=== PATIENT | female | born 1955 | race Caucasian/White ===

== ENCOUNTER → 2017-09-19 09:50 | Outpatient (CLI) | payer OTHER, SELFPAY ==
[2017-09-19 11:52] LABS: Free T4, Direct Thyroxine 1.56 ng/dL (0.78-2.19)
[2017-09-19 12:06] LABS: Thyroid Stimulating Hormone 0.09 uIU/mL (0.47-4.68)
== END ==
PROVIDERS: PCP Internal Medicine; Visit Provider Internal Medicine
DX: E03.9 Hypothyroidism, unspecified (principal)
CPT/HCPCS: 36415; 84439; 84443; 84481

== ENCOUNTER → 2018-03-20 09:45 | Outpatient (CLI) | payer OTHER, SELFPAY ==
[2018-03-20 11:40] LABS: Thyroid Stimulating Hormone 3.03 uIU/mL (0.47-4.68)
== END ==
PROVIDERS: PCP Internal Medicine; Visit Provider Internal Medicine
DX: E03.9 Hypothyroidism, unspecified (principal)
CPT/HCPCS: 36415; 84443

== ENCOUNTER 2019-04-26 16:28 | Emergency (ER) | payer OTHER, SELFPAY ==
--- NOTE | 2019-04-26 16:40 | DI.RAD.S_ITS ---
PROCEDURE: XR CHEST 1V INDICATIONS: multiple syncopal episodes TECHNIQUE: One view of the chest was acquired. COMPARISON: [facility], , CHEST 2 VIEW, 02/27/2013, 10:13. FINDINGS: Surgical changes and devices: None. Lungs and pleura: Lungs are clear. No pleural effusions or pneumothorax. Mediastinum: Mediastinal contours appear normal. Heart size is normal. There is a moderate-sized hiatal hernia. Bones and chest wall: No suspicious bony lesions. Overlying soft tissues appear unremarkable. IMPRESSION: 1. No acute cardiopulmonary disease. 2. Moderate size hiatal hernia. Dictated by: Marilyn Simpson M.D. on 04/26/2019 at 17:48 Approved by: Marilyn Simpson M.D. on 04/26/2019 at 17:49
--- NOTE | 2019-04-26 16:40 | DI.CT.S_ITS ---
PROCEDURE: CT HEAD/BRAIN WO CON INDICATIONS: head injury due to syncopal episode or new seizure TECHNIQUE: Noncontrast 4.5 mm thick angled axial sections acquired from the foramen magnum to the vertex, with coronal and sagittal reformats. For radiation dose reduction, the following was used: automated exposure control, adjustment of mA and/or kV according to patient size. COMPARISON: None. FINDINGS: Image quality: Excellent. CSF spaces: Basal cisterns are patent. No extra-axial fluid collections. The ventricles are symmetric in size and shape. Brain: No intracranial bleeds or masses. There is mild cerebral volume loss for age, with resultant ventricular and sulcal prominence. There are moderate periventricular and deep white matter chronic small vessel ischemic changes. There is intracranial internal carotid artery atherosclerosis. Skull and face: Calvarium and visualized facial bones appear intact, without suspicious lesions. Sinuses: Visualized sinuses and mastoids are clear. IMPRESSION: 1. No acute intracranial abnormalities. No intracranial bleed or skull fracture. 2. Cerebral volume loss and chronic microvascular ischemic changes. Dictated by: Marilyn Simpson M.D. on 04/26/2019 at 17:25 Approved by: Marilyn Simpson M.D. on 04/26/2019 at 17:26
--- NOTE | 2019-04-26 16:41 | ED_ITS ---
HPI - Syncope General Chief Complaint: Syncope Stated Complaint: Passing Out Time Seen by Provider: 04/26/19 16:30 Source: patient and family Mode of arrival: Ambulatory Limitations: no limitations History of Present Illness HPI narrative: 63-year-old female former smoker with history of hypertension presents with her in the chief complaint of at least 3 syncopal episodes in the past 2 days. She states they seem to happen when she stands up too quickly and reports that she was recently started on atenolol for elevated blood pressure. She has had some nausea vomiting and diarrhea but isn't a great his jean marie and is unclear how much has happened. She denies any dark and tarry stool or vaginal bleeding. She denies urinary complaints such as dysuria, frequency or urgency. She denies any chest pain or shortness of breath and has no history of blood clot. She did hit her head on the syncopal episode earlier today. She does state that she thinks she can feel herself becoming lightheaded prior to these episodes. MD complaint: loss of consciousness and felt faint Onset (ago): day(s) Prodromal symptoms: lightheaded Witnessed: yes - by bystander Context: getting out of bed Injuries sustained associated with event: head Current symptoms: none Treatments prior to arrival: none Related Data Previous Rx's Medication Instructions Recorded atenolol 25 mg PO QDAY #90 tab 06/05/17 fluticasone propionate 0 INTRANASAL QDAY #16 gm 06/18/17 albuterol sulfate 90 mcg/actuation 2 puff INHALATION SEE INSTRUCTIONS 09/17/17 aerosol inhaler #1 inh venlafaxine 75 mg tablet 75 mg PO BID #180 tab 09/17/17 levothyroxine 88 mcg tablet 88 mcg PO DAILY #90 tab 10/15/17 potassium chloride 20 meq PO DAILY #7 tab 04/26/19 Allergies Allergy/AdvReac Type Severity Reaction Status Date / Time Sulfa (Sulfonamide Allergy Mild Unverified 09/17/17 10:32 Antibiotics) [SULFA (SULFONAMIDE ANTIBIOTICS)] Review of Systems Constitutional Constitutional: Denies chills, Denies fatigue, Denies fever(s), Denies frequent falls, Denies lethargy and Denies weakness Eyes Eyes: Denies change in vision, Denies eye discharge, Denies irritation and Denies loss of vision ENT Ears, Nose, Mouth, and Throat: Denies change in voice, Denies dizziness, Denies neck pain, Denies sore throat and Denies throat swelling Cardiovascular Cardiovascular: Denies chest pain, Reports syncope, Denies irregular heart rhythm, Denies lightheadedness, Denies palpitations, Denies dyspnea, Denies dyspnea on exertion and Denies orthopnea Respiratory Respiratory: Denies cough, Denies dyspnea, Denies dyspnea on exertion and Denies wheezing Gastrointestinal Gastrointestinal: Denies abdominal pain, Denies change in bowel habits, Reports diarrhea, Reports nausea and Reports vomiting Genitourinary Genitourinary: Denies hematuria, Denies flank pain, Denies urinary incontinence and Denies urinary urgency Musculoskeletal Musculoskeletal: Denies back pain, Denies muscle weakness, Denies neck pain, Denies numbness and Denies tingling Integumentary/Breasts Skin/Breast: Denies pruritus, Denies erythema, Denies rash and Denies wounds Neurologic Neurologic: Denies behavioral changes, Denies confusion, Denies dizziness, Reports syncope, Denies frequent falls, Denies loss of vision, Denies numbness, Denies tingling and Denies weakness Psychiatric Psychiatric: Denies anxiety, Denies behavioral changes, Denies confusion, Denies depression, Denies homicidal ideation and Denies suicidal ideation Endocrine Endocrine: Denies fatigue, Denies flushing and Denies palpitations Hematologic/Lymphatic Hematologic/Lymphatic: Denies easy bruising Allergic/Immunologic Allergic/Immunologic: Denies urticaria, Denies throat swelling and Denies wheezing Patient History Medical History (Updated 04/26/19 @ 20:33 by Corky Bryan DO) Anxiety (Chronic) Bronchiectasis (Chronic ~1993) Depression (Chronic) GERD (gastroesophageal reflux disease) (Chronic) Hypothyroidism (Chronic) Surgical History (Updated 09/16/17 @ 20:39 by Yoselin Ruth) Anesthesia (Resolved) History of bilateral salpingo-oophorectomy (BSO) (~06/2012) Family History (Updated 09/16/17 @ 20:41 by Yoselin Ruth) Father Age: 90 Stroke CAD (coronary artery disease) Mother Age: 87 Hypertension Grandfather No problems noted. Grandmother Cancer Grandfather No problems noted. Social History Smoking Status: Current every day smoker Smoking Status: Former smoker Exam Narrative Exam Narrative: GENERAL: [63] year old patient appears stated age. Well- nourished, well-developed patient, in mild distress. HEAD: Atraumatic. Normocephalic. EYES: Pupils equal round and reactive. Extraocular motions intact. No scleral icterus. No injection or drainage. ENT: Nose without bleeding, purulent drainage. Throat without erythema, tonsillar hypertrophy or exudate. Airway patent. NECK: Trachea midline. Non tender CARDIOVASCULAR: Regular rate and rhythm without murmurs, gallops, or rubs. RESPIRATORY: Clear to auscultation. Breath sounds equal bilaterally. No wheezes, rales, or rhonchi. GASTROINTESTINAL: Abdomen soft, non-tender, nondistended. RECTAL: Exam performed with patient's permission and female nursing concrete pipe plant supervisor at the bedside. Heme negative EXTREMITIES: No edema or joint tenderness. BACK: Nontender without deformity or crepitance. No flank tenderness. NEURO: AOx3. SKIN: No rash or erythema of visible areas Initial Vital Signs Initial Vital Signs: Vital Signs Temperature 98.3 F 04/26/19 16:45 Pulse Rate 78 04/26/19 16:45 Respiratory Rate 22 04/26/19 16:45 Blood Pressure 145/70 H 04/26/19 16:45 Pulse Oximetry 98 04/26/19 16:45 Course Orders Ordered: Discontinued Medications Sodium Chloride (Normal Saline 0.9%) 1,000 mls @ 150 mls/hr IV CONT YURIDIA Last Admin: 04/26/19 17:38 Dose: 150 mls/hr Documented by: ÁLVARO Vital Signs Vital signs: Vital Signs - 8 hr 04/26/19 16:45 04/26/19 18:44 04/26/19 19:30 Temperature 98.3 F Pulse Rate 78 63 Pulse Rate [Orthostatic Lying] 61 Pulse Rate [Orthostatic Sitting] 69 Pulse Rate [Orthostatic Standing] 71 Respiratory Rate 22 18 Blood Pressure 145/70 H Blood Pressure [Orthostatic Lying] 135/75 Blood Pressure [Orthostatic Sitting] 121/62 Blood Pressure [Orthostatic Standing] 84/54 L Blood Pressure [Right Arm] 124/64 Pulse Oximetry 98 98 MDM - Syncope Lab Data Result diagrams: 04/26/19 16:50 04/26/19 16:50 Labs: Lab Results 04/26/19 04/26/19 04/26/19 Range/Units 16:50 16:50 16:50 WBC 9.5 (4.5-11.0) X10^3/uL RBC 4.05 (4.0-5.2) X10^6/uL Hgb 9.0 L (12.0-16.0) g/dL Hct 29.1 L (36-46) % MCV 72.0 L (80-100) fL MCH 22.3 L (26-34) PG MCHC 31.0 (30-36) % RDW 18.4 H (11.6-14.8) % Plt Count 482 H (150-400) X10^3/uL Neut % (Auto) 66.3 (50-75) % Lymph % (Auto) 23.6 L (25-40) % [place] % (Auto) 8.2 (3-14) % Eos % (Auto) 1.2 L (2-4) % Baso % (Auto) 0.7 (0-2) % Neut # (Auto) 6300 (1866-8237) /uL Lymph # (Auto) 2200 (0207-4754) /uL [place] # (Auto) 800 (0-900) /uL Eos # (Auto) 100 (0-450) /uL Baso # (Auto) 100 (0-100) /uL PT 11.1 (10.1-12.7) SECONDS INR 1.0 (0.9-1.3) D-Dimer 1907 H (<230) ng/mL Sodium (137-145) mmol/L Potassium (3.4-5.1) mmol/L Chloride (98-107) mmol/L Carbon Dioxide (22-32) mmol/L BUN (7-17) mg/dL Creatinine (0.52-1.04) mg/dL Estimated GFR (>60) mL/min BUN/Creatinine Ratio (6-22) Glucose (80-110) mg/dL Calcium (8.4-10.2) mg/dL Magnesium 2.0 (1.6-2.3) mg/dL Total Bilirubin (0.2-1.3) mg/dL AST (14-36) IU/L ALT (<35) IU/L Alkaline Phosphatase (38-126) U/L Total Creatine Kinase (30-135) U/L CK-MB (CK-2) CK-MB (CK-2) Rel Index Troponin I (0.01-0.034) ng/mL NT-Pro-B Natriuret Pep 117 (<125) pg/mL Total Protein (6.3-8.2) g/dL Albumin (3.5-5.0) g/dL Globulin (1.7-4.1) g/dL Albumin/Globulin Ratio (1.0-2.8) Prolactin 33.1 H (3.0-18.6) ng/mL 04/26/19 Range/Units 16:50 WBC (4.5-11.0) X10^3/uL RBC (4.0-5.2) X10^6/uL Hgb (12.0-16.0) g/dL Hct (36-46) % MCV (80-100) fL MCH (26-34) PG MCHC (30-36) % RDW (11.6-14.8) % Plt Count (150-400) X10^3/uL Neut % (Auto) (50-75) % Lymph % (Auto) (25-40) % [place] % (Auto) (3-14) % Eos % (Auto) (2-4) % Baso % (Auto) (0-2) % Neut # (Auto) (6016-8049) /uL Lymph # (Auto) (4077-5751) /uL [place] # (Auto) (0-900) /uL Eos # (Auto) (0-450) /uL Baso # (Auto) (0-100) /uL PT (10.1-12.7) SECONDS INR (0.9-1.3) D-Dimer (<230) ng/mL Sodium 130 L (137-145) mmol/L Potassium 3.1 L (3.4-5.1) mmol/L Chloride 91 L (98-107) mmol/L Carbon Dioxide 29 (22-32) mmol/L BUN 12 (7-17) mg/dL Creatinine 0.60 (0.52-1.04) mg/dL Estimated GFR > 60.0 (>60) mL/min BUN/Creatinine Ratio 20.0 (6-22) Glucose 86 (80-110) mg/dL Calcium 9.2 (8.4-10.2) mg/dL Magnesium (1.6-2.3) mg/dL Total Bilirubin 0.2 (0.2-1.3) mg/dL AST 30 (14-36) IU/L ALT 17 (<35) IU/L Alkaline Phosphatase 50 (38-126) U/L Total Creatine Kinase 61 (30-135) U/L CK-MB (CK-2) TNP CK-MB (CK-2) Rel Index TNP Troponin I < 0.012 (0.01-0.034) ng/mL NT-Pro-B Natriuret Pep (<125) pg/mL Total Protein 7.6 (6.3-8.2) g/dL Albumin 4.4 (3.5-5.0) g/dL Globulin 3.2 (1.7-4.1) g/dL Albumin/Globulin Ratio 1.4 (1.0-2.8) Prolactin (3.0-18.6) ng/mL Imaging Data CT scan - chest: Radiologist's Impression: [address] [address] [address] Scan Report Signed Patient: Norma Lowe [facility]#: [id number] : 6Acct:[id number] Age/Sex: 63 / FDate of Service: 04/26/19 Loc: ED Accession Number: [id number] Procedure: CT angio chest PE protocol Ordering Provider: Corky Bryan D.O. PROCEDURE: CT ANGIO CHEST PE PROTOCOL INDICATIONS: syncope, SOB, critical DDimer TECHNIQUE: After the administration of intravenous contrast, 2 mm thick sections acquired from the pulmonary apices to the posterior costophrenic angles. 3-dimensional maximum intensity projection (MIP) coronal and sagittal reformats were then acquired through the thorax. For radiation dose reduction, the following was used: automated exposure contro l, adjustment of mA and/or kV according to patient size. COMPARISON: [facility], , CHEST 2 VIEW, 07/31/2006, 9:36. FINDINGS: Image quality: Excellent. Pulmonary arteries: Pulmonary arteries are normal in size, and demonstrate no intraluminal filling defects to suggest central pulmonary embolism. Lungs and pleura: Mild emphysema. Bibasilar opacities are most likely scars/atelectasis. There is a 5 mm subpleural nodule in the left lower lobe (series 6 image 213). A small calcified neuromas noted in the right middle lobe. No pleural effusions or pneumothorax. Central and peripheral airways are patent. Mediastinum: Heart size is normal, without pericardial effusion. No mediastinal or hilar adenopathy. Thoracic aorta is normal in caliber and enhancement. Esophagus is normal in caliber. Moderate to large hiatal hernia. Bones and chest wall: No suspicious bony lesions. Ribs and thoracic spine appear intact throughout. Thyroid gland is normal. No axillary or supraclavicular adenopathy. Abdomen: Visualized upper abdominal solid organs appear normal in the early arterial phase of enhancement. A small indeterminate cortical nodule in the superior pole the right kidney is most likely a cyst. IMPRESSION: 1. No findings to suggest pulmonary embolism. 2. Mild emphysema. 3. A 5 mm subpleural nodule in the left lower lobe. Please see enclosed followup recommendation. 4. Bibasilar scars/atelectasis. Fleischner Society criteria for SOLID lung nodule followup. Nodule size (mm)Low-risk patientHigh-risk patient?4No follow-up neededFollow-up at 12 mo; if no change, no further follow-up>[id number] CT at 12 mo; if no change, no further follow-up needed.Initial follow-up CT at 6-12 mo, then 18-24 mo if no change. >6-8Initial follow-up CT at 6-12 mo, then 18-24 mo if no change. Initial follow- up CT at 3-6 mo, then 9-12 mo and 24 mo if no change. >8Follow-up CT at 3, 9, 24 mo. Or PET and/or biopsy.Same as for low-risk pts. Dictated by: Marilyn Simpson M.D. on 04/26/2019 at 18:29 Approved by: Marilyn Simpson M.D. on 04/26/2019 at 18:38 ECG Data Attestation: I personally reviewed and interpreted this ECG as follows: Interpretation: EKG is normal sinus rhythm rate [ 71] and free of any signs of ischemia or ectopy. No ST segmental elevation or depression. No T wave inversions Discharge Plan Departure Patient Disposition: Home Clinical Impression: Orthostatic hypotension, Acute hypokalemia Anemia Qualifiers: Anemia type: iron deficiency Iron deficiency anemia type: unspecified iron deficiency Qualified Code(s): D50.9 - Iron deficiency anemia, unspecified Discharge Date/Time: 04/26/19 20:39 Instructions: DI for Syncope in Adults (Fainting) Activity Restrictions/Additional Instructions: *You have been diagnosed with [syncope, likely secondary to orthostatic hypotension] *What to do: *Take medications as directed *Follow up with your primary care provider on Saturday as planned. It would seem reasonable to call them tomorrow to let them know of your visit today so they can obtain the records and be prepared for your visit. *Return to ER if you should have any new, worsening or concerning symptoms Prescriptions: New potassium chloride 20 mEq tablet extended release 20 meq PO DAILY Qty: 7 RF: 0 No Action atenolol 25 MG tablet 25 mg PO QDAY Qty: 90 RF: 3 fluticasone propionate 16 GM spray,suspension 0 Intranasal QDAY Qty: 16 RF: 3 albuterol sulfate [Proventil HFA] 90 mcg/actuation HFA aerosol inhaler 2 puff INHALATION SEE INSTRUCTIONS Qty: 1 RF: 2 levothyroxine 88 mcg tablet 88 mcg PO DAILY Qty: 90 RF: 3 venlafaxine 75 mg tablet 75 mg PO BID Qty: 180 RF: 3 Referrals: Traci Barney ARNP [Primary Care Provider] -
[2019-04-26 16:45] VITALS: BP 145/70; PULSE 78; RESP 22; TEMP 36.8; O2SAT 98; BMI 21.9
[2019-04-26 16:59] LABS: Add Manual Diff / Slide Review NO; Basophils Absolute Auto 100 /uL (0-100); Basophils Percent Auto 0.7 % (0-2); Eosinophils Absolute Auto 100 /uL (0-450); Eosinophils Percent Auto 1.2 % (2-4); Hematocrit 29.1 % (36-46); Lymphocytes Absolute Auto 2200 /uL (1100-4500); Lymphocytes Percent Auto 23.6 % (25-40); Mean Corpuscular Hemoglobin 22.3 PG (26-34); Monocytes Absolute Auto 800 /uL (0-900); Monocytes Percent Auto 8.2 % (3-14); Neutrophils Absolute Auto 6300 /uL (1500-7000); Neutrophils Percent Auto 66.3 % (50-75); Platelet Count 482 X10^3/uL (150-400); Red Blood Cell Count 4.05 X10^6/uL (4.0-5.2); Red Cell Distribution Width 18.4 % (11.6-14.8); White Blood Cell Count 9.5 X10^3/uL (4.5-11.0)
[2019-04-26 17:02] LABS: Prothrombin Time 11.1 SECONDS (10.1-12.7)
[2019-04-26 17:05] LABS: Alanine Aminotransferase 17 IU/L (<35); Albumin 4.4 g/dL (3.5-5.0); Albumin Globulin Ratio 1.4 (1.0-2.8); Alkaline Phosphatase 50 U/L (38-126); Aspartate Aminotransferase 30 IU/L (14-36); Bilirubin Total 0.2 mg/dL (0.2-1.3); Blood Urea Nitrogen 12 mg/dL (7-17); Calcium 9.2 mg/dL (8.4-10.2); Carbon Dioxide 29 mmol/L (22-32); Chloride 91 mmol/L (98-107); Creatine Kinase 61 U/L (30-135); Estimated Glomerular Filt Rate > 60.0 mL/min (>60); Globulin 3.2 g/dL (1.7-4.1); Glucose 86 mg/dL (80-110); HEMOLYSIS < 15 (0-50); Potassium 3.1 mmol/L (3.4-5.1); Sodium 130 mmol/L (137-145); Total Protein 7.6 g/dL (6.3-8.2)
[2019-04-26 17:11] LABS: D Dimer 1907 ng/mL (<230)
[2019-04-26 17:17] LABS: Troponin I < 0.012 ng/mL (0.01-0.034)
[2019-04-26 17:22] LABS: NT-proBNP (BNP-Adult 18+) 117 pg/mL (<125)
--- NOTE | 2019-04-26 17:28 | DI.CT.S_ITS ---
PROCEDURE: CT ANGIO CHEST PE PROTOCOL INDICATIONS: syncope, SOB, critical DDimer TECHNIQUE: After the administration of intravenous contrast, 2 mm thick sections acquired from the pulmonary apices to the posterior costophrenic angles. 3-dimensional maximum intensity projection (MIP) coronal and sagittal reformats were then acquired through the thorax. For radiation dose reduction, the following was used: automated exposure control, adjustment of mA and/or kV according to patient size. COMPARISON: [facility], , CHEST 2 VIEW, 07/31/2006, 9:36. FINDINGS: Image quality: Excellent. Pulmonary arteries: Pulmonary arteries are normal in size, and demonstrate no intraluminal filling defects to suggest central pulmonary embolism. Lungs and pleura: Mild emphysema. Bibasilar opacities are most likely scars/atelectasis. There is a 5 mm subpleural nodule in the left lower lobe (series 6 image 213). A small calcified neuromas noted in the right middle lobe. No pleural effusions or pneumothorax. Central and peripheral airways are patent. Mediastinum: Heart size is normal, without pericardial effusion. No mediastinal or hilar adenopathy. Thoracic aorta is normal in caliber and enhancement. Esophagus is normal in caliber. Moderate to large hiatal hernia. Bones and chest wall: No suspicious bony lesions. Ribs and thoracic spine appear intact throughout. Thyroid gland is normal. No axillary or supraclavicular adenopathy. Abdomen: Visualized upper abdominal solid organs appear normal in the early arterial phase of enhancement. A small indeterminate cortical nodule in the superior pole the right kidney is most likely a cyst. IMPRESSION: 1. No findings to suggest pulmonary embolism. 2. Mild emphysema. 3. A 5 mm subpleural nodule in the left lower lobe. Please see enclosed followup recommendation. 4. Bibasilar scars/atelectasis. Fleischner Society criteria for SOLID lung nodule followup. Nodule size (mm)Low-risk patientHigh-risk patient?4No follow-up neededFollow-up at 12 mo; if no change, no further follow-up>[id number] CT at 12 mo; if no change, no further follow-up needed.Initial follow-up CT at 6-12 mo, then 18-24 mo if no change. >6-8Initial follow-up CT at 6-12 mo, then 18-24 mo if no change. Initial follow-up CT at 3-6 mo, then 9-12 mo and 24 mo if no change. >8Follow-up CT at 3, 9, 24 mo. Or PET and/or biopsy.Same as for low-risk pts. Dictated by: Marilyn Simpson M.D. on 04/26/2019 at 18:29 Approved by: Marilyn Simpson M.D. on 04/26/2019 at 18:38
[2019-04-26] MEDS: SODIUM CHLORIDE 0.9% 1,000 ML 150 ML IV (17:38)
[2019-04-26 17:47] LABS: Prolactin 33.1 ng/mL (3.0-18.6)
[2019-04-26 18:44] VITALS: BP 124/64; PULSE 63; RESP 18; O2SAT 98
[2019-04-26 19:30] VITALS: BP 121/62; BP 135/75; BP 84/54; PULSE 61; PULSE 69; PULSE 71
[2019-04-26 20:37] VITALS: BP 152/78; BP 164/83; PULSE 119; PULSE 83; PULSE 84
--- NOTE | 2019-05-20 12:13 | PC.NURSE ---
late entry IV stop time 2037. Fluids started at 1738 at 150 per hour. Pt received 450 mL total of N.S.
== END 2019-04-26 20:39 | disposition home or self-care (01) ==
PROVIDERS: Emergency Provider Emergency Medicine; PCP Internal Medicine
DX: I95.1 Orthostatic hypotension (principal); E87.6 Hypokalemia; D50.9 Iron deficiency anemia, unspecified; R06.02 Shortness of breath; S09.90XA Unspecified injury of head, initial encounter
CPT/HCPCS: 36415; 70450; 71045; 71275; 80053; 82550; 83735; 83880; 84146; 84484; 85025; 85379; 85610; 93005; 96360; 96361; 99284; 99285; Q9967

== ENCOUNTER → 2019-05-20 08:26 | Outpatient (CLI) | payer OTHER, SELFPAY ==
--- NOTE | 2019-06-19 15:23 | PM.CARDMON.1 ---
[employer] Report Referral & Results Date Patient Seen: 05/20/19 Requesting provider: Traci Barney Indication: Syncope Duration of monitoring (days): 14 Diary information: There was 1 patient triggered event associated with sinus rhythm and no patient diary entries Data: Minimum heart rate identified was 56 beats per minute at 20:03 on 06/01/2019 Maximum sinus heart rate was 166 beats per minute at 02:01 on 05/30/2019 Maximum overall heart rate was 182 beats per minute at 22:02 on 05/23/2019 during a 4 beat run of SVT Less than 1% of identified beats or either ventricular supraventricular ectopic in origin There was only the 1 run of SVT Patient did have 12.5 seconds of ventricular bigeminy Impression: Minor dysrhythmias as above. No etiology for syncope identified on this study.
== END ==
PROVIDERS: PCP Internal Medicine; Referring Provider Internal Medicine; Visit Provider Internal Medicine
DX: R55 Syncope and collapse (principal)
CPT/HCPCS: 0296T; 0298T

== ENCOUNTER 2019-05-29 19:19 | Emergency (ER) | payer OTHER, SELFPAY ==
[2019-05-29 19:25] VITALS: BP 135/66; PULSE 118; RESP 32; TEMP 39.1; O2SAT 97
[2019-05-29 19:35] VITALS: TEMP 39.2
[2019-05-29] MEDS: ACETAMINOPHEN 325 MG TABLET 975 MG PO (19:35)
--- NOTE | 2019-05-29 19:41 | DI.RAD.S_ITS ---
PROCEDURE: XR CHEST 1V INDICATIONS: suspected sepsis TECHNIQUE: One view of the chest was acquired. COMPARISON: [facility], CR, XR CHEST 1V, 04/26/2019, 16:38. FINDINGS: Surgical changes and devices: Device projects over and partially obscures the left upper lobe Lungs and pleura: Lungs are clear. No pleural effusions or pneumothorax. Mediastinum: Mediastinal contours appear normal. Heart size is normal. Moderate-large hiatal hernia Bones and chest wall: No suspicious bony lesions. Overlying soft tissues appear unremarkable. IMPRESSION: No acute disease Moderate to large hiatal hernia. Dictated by: Calvin Boateng M.D. on 05/29/2019 at 20:18 Approved by: Calvin Boateng M.D. on 05/29/2019 at 20:19
[2019-05-29] MEDS: SODIUM CHLORIDE 0.9% 1,000 ML 1000 ML IV ×2 (19:45→21:28)
--- NOTE | 2019-05-29 20:00 | ED.FEVER ---
HPI - Fever General Chief Complaint: Fever Stated Complaint: FEVER HEADACHE COUGH Time Seen by Provider: 05/29/19 19:25 Source: patient Mode of arrival: Ambulatory Limitations: no limitations History of Present Illness HPI Narrative: 63-year-old female nonsmoker with history of hypothyroid, asthma, and hypertension presents with her in the chief complaint of a few days of fever as high as 102.7, dry hacking cough headache and sore throat. Patient denies any recent travel, exposure to persons known or suspected to have COVID-19. She denies GI symptoms such as nausea, vomiting or diarrhea. She has had some urinary complaints such as dysuria, frequency and urgency. She denies any flank pain. MD complaint: fever and malaise Onset (ago): day(s) Maximum Temperature: 102.7 F Temperature Source: oral Associated symptoms: chills, myalgias, headache, sore throat, cough and dysuria Relieving factors: nothing Exacerbating factors: nothing Treatments prior to arrival fever: acetaminophen Related Data Previous Rx's Medication Instructions Recorded atenolol 25 mg PO QDAY #90 tab 06/05/17 fluticasone propionate 0 INTRANASAL QDAY #16 gm 06/18/17 albuterol sulfate 90 mcg/actuation 2 puff INHALATION SEE INSTRUCTIONS 09/17/17 aerosol inhaler #1 inh venlafaxine 75 mg tablet 75 mg PO BID #180 tab 09/17/17 levothyroxine 88 mcg tablet 88 mcg PO DAILY #90 tab 10/15/17 potassium chloride 20 meq PO DAILY #7 tab 04/26/19 cephalexin [Keflex] 500 mg PO QID 7 Days #28 cap 05/29/19 Allergies Allergy/AdvReac Type Severity Reaction Status Date / Time Sulfa (Sulfonamide Allergy Mild Verified 05/29/19 19:30 Antibiotics) [SULFA (SULFONAMIDE ANTIBIOTICS)] Review of Systems Constitutional Constitutional: Reports chills, Denies fatigue, Reports fever(s), Denies frequent falls, Denies lethargy and Denies weakness Eyes Eyes: Denies change in vision, Denies eye discharge, Denies irritation and Denies loss of vision ENT Ears, Nose, Mouth, and Throat: Denies change in voice, Denies dizziness, Denies neck pain, Reports sore throat and Denies throat swelling Cardiovascular Cardiovascular: Denies chest pain, Denies irregular heart rhythm, Denies lightheadedness, Denies palpitations, Reports dyspnea, Reports dyspnea on exertion and Denies orthopnea Respiratory Respiratory: Reports cough, Reports dyspnea, Reports dyspnea on exertion and Denies wheezing Gastrointestinal Gastrointestinal: Denies abdominal pain, Denies change in bowel habits, Denies diarrhea, Denies nausea and Denies vomiting Genitourinary Genitourinary: Denies hematuria, Denies flank pain, Denies urinary incontinence and Denies urinary urgency Musculoskeletal Musculoskeletal: Denies back pain, Denies muscle weakness, Denies neck pain, Denies numbness and Denies tingling Integumentary/Breasts Skin/Breast: Denies pruritus, Denies erythema, Denies rash and Denies wounds Neurologic Neurologic: Denies behavioral changes, Denies confusion, Denies dizziness, Denies frequent falls, Denies loss of vision, Denies numbness, Denies tingling and Denies weakness Psychiatric Psychiatric: Denies anxiety, Denies behavioral changes, Denies confusion, Denies depression, Denies homicidal ideation and Denies suicidal ideation Endocrine Endocrine: Denies fatigue, Denies flushing and Denies palpitations Hematologic/Lymphatic Hematologic/Lymphatic: Denies easy bruising Allergic/Immunologic Allergic/Immunologic: Denies urticaria, Denies throat swelling and Denies wheezing Patient History Medical History Anxiety (Chronic) Bronchiectasis (Chronic ~1993) Depression (Chronic) GERD (gastroesophageal reflux disease) (Chronic) Hypothyroidism (Chronic) Surgical History Anesthesia (Resolved) History of bilateral salpingo-oophorectomy (BSO) (~06/2012) Family History Father Age: 90 Stroke CAD (coronary artery disease) Mother Age: 87 Hypertension Grandfather No problems noted. Grandmother Cancer Grandfather No problems noted. Social History Smoking Status: Current every day smoker Smoking Status: Current every day smoker tobacco type: cigarettes alcohol intake frequency: 0-2 drinks per day Alcohol type: wine and hard liquor Substance Use Type: does not use Exam Narrative Exam Narrative: GENERAL: [63] year old patient appears stated age. Well-nourished, well-developed patient, in mild distress. HEAD: Atraumatic. Normocephalic. EYES: Pupils equal round and reactive. Extraocular motions intact. No scleral icterus. No injection or drainage. ENT: Nose without bleeding, purulent drainage. Throat without erythema, tonsillar hypertrophy or exudate. Airway patent. NECK: Trachea midline. Non tender CARDIOVASCULAR: Regular rate and rhythm without murmurs, gallops, or rubs. RESPIRATORY: Clear to auscultation. Breath sounds equal bilaterally. No wheezes, rales, or rhonchi. GASTROINTESTINAL: Abdomen soft, non-tender, nondistended. EXTREMITIES: No edema or joint tenderness. BACK: Nontender without deformity or crepitance. No flank tenderness. NEURO: AOx3. SKIN: No rash or erythema of visible areas Initial Vital Signs Initial Vital Signs: Vital Signs Temperature 102.3 F H 05/29/19 19:25 Pulse Rate 118 H 05/29/19 19:25 Respiratory Rate 32 H 05/29/19 19:25 Blood Pressure 135/66 05/29/19 19:25 Pulse Oximetry 97 05/29/19 19:25 Course Orders Ordered: ED Orders 05/29/19 19:30 Influenza A & B (PCR) Stat 05/29/19 19:41 XR chest 1V Stat EKG-12 Lead Stat RT Consult Eval and Treat Now 05/29/19 19:50 C-Reactive Protein Quant Stat Complete Blood Count AUTO DIFF Stat Comprehensive Metabolic Panel Stat Lactate (Lactic Acid) Stat Lipase Stat Partial Thromboplastin Time Stat Procalcitonin Stat Prothrombin Time INR Stat Troponin & CK Cardiac Panel Stat 05/29/19 20:30 CT chest wo con Stat 05/29/19 20:39 Blood Culture Stat 05/29/19 21:25 Urinalysis and Microscopic Stat Urine Culture Stat 05/29/19 22:30 Lactate (Lactic Acid) Stat Troponin I Stat Discontinued Medications Acetaminophen (Tylenol) 975 mg PO NOW ONE Stop: 05/29/19 19:31 Last Admin: 05/29/19 19:35 Dose: 975 mg Documented by: KELSI Sodium Chloride (Normal Saline 0.9%) 1,000 mls @ 1,000 mls/hr IV BOLUS ONE Stop: 05/29/19 20:40 Last Infusion: 05/29/19 21:22 Dose: 0 mls/hr Documented by: Admin: 05/29/19 19:45 Dose: 1,000 mls/hr Documented by: CLAYTON Sodium Chloride (Normal Saline 0.9%) 1,000 mls @ 1,000 mls/hr IV BOLUS ONE Stop: 05/29/19 21:29 Last Infusion: 05/29/19 22:30 Dose: 0 mls/hr Documented by: Admin: 05/29/19 21:28 Dose: 1,000 mls/hr Documented by: CLAYTON Ceftriaxone Sodium/Dextrose (Rocephin) 1 gm in 50 mls @ 100 mls/hr IV NOW ONE Stop: 05/29/19 21:06 Last Infusion: 05/29/19 21:28 Dose: 0 mls/hr Documented by: Admin: 05/29/19 21:01 Dose: 100 mls/hr Documented by: CLAYTON Vital Signs Vital signs: Vital Signs - 8 hr 05/29/19 19:25 05/29/19 19:35 05/29/19 21:06 Temperature 102.3 F H 102.6 F H 99.3 F Pulse Rate 118 H Respiratory Rate 32 H Blood Pressure 135/66 Pulse Oximetry 97 05/29/19 23:15 Temperature 99 F Pulse Rate 99 H Respiratory Rate 16 Blood Pressure 168/74 H Pulse Oximetry 98 MDM - Fever Lab Data Result diagrams: 05/29/19 19:50 05/29/19 19:50 Labs: Lab Results 05/29/19 05/29/19 05/29/19 Range/Units 19:30 19:50 19:50 WBC 12.6 H (4.5-11.0) X10^3/uL RBC 4.08 (4.0-5.2) X10^6/uL Hgb 10.1 L (12.0-16.0) g/dL Hct 31.8 L (36-46) % MCV 78.0 L (80-100) fL MCH 24.8 L (26-34) PG MCHC 31.8 (30-36) % RDW 27.1 H (11.6-14.8) % Plt Count 320 (150-400) X10^3/uL Neut % (Auto) 88.3 H (50-75) % Lymph % (Auto) 4.9 L (25-40) % [place] % (Auto) 6.4 (3-14) % Eos % (Auto) 0.1 L (2-4) % Baso % (Auto) 0.3 (0-2) % Neut # (Auto) 64720 H (7417-9144) /uL Lymph # (Auto) 600 L (7897-2054) /uL [place] # (Auto) 800 (0-900) /uL Eos # (Auto) 0 (0-450) /uL Baso # (Auto) 0 (0-100) /uL RBC Morphology See below Polychromasia 1+ H Hypochromasia 2+ H Anisocytosis 3+ H Microcytosis 1+ H PT 11.3 (10.1-12.7) SECONDS INR 1.0 (0.9-1.3) APTT 27 (26.4-36.2) SECONDS Sodium (137-145) mmol/L Potassium (3.4-5.1) mmol/L Chloride (98-107) mmol/L Carbon Dioxide (22-32) mmol/L BUN (7-17) mg/dL Creatinine (0.52-1.04) mg/dL Estimated GFR (>60) mL/min BUN/Creatinine Ratio (6-22) Glucose (80-110) mg/dL Lactate (0.7-2.1) mmol/L Calcium (8.4-10.2) mg/dL Total Bilirubin (0.2-1.3) mg/dL AST (14-36) IU/L ALT (<35) IU/L Alkaline Phosphatase (38-126) U/L Total Creatine Kinase (30-135) U/L CK-MB (CK-2) CK-MB (CK-2) Rel Index Troponin I (0.01-0.034) ng/mL C-Reactive Protein (<1.0) mg/dL Total Protein (6.3-8.2) g/dL Albumin (3.5-5.0) g/dL Globulin (1.7-4.1) g/dL Albumin/Globulin Ratio (1.0-2.8) Lipase (23-300) U/L Procalcitonin (<0.5) ng/mL Urine Color Urine Appearance Urine pH (4.5-8.0) Ur Specific [place] (1.000-1.035) Urine Protein (Negative) Urine Glucose (UA) (Negative) g/dL Urine Ketones (NEGATIVE) Urine Occult Blood (Negative) Urine Nitrate (Negative) Urine Bilirubin (NEGATIVE) Urine Urobilinogen (0.2) E.U./dL Ur Leukocyte Esterase (NEGATIVE) Urine RBC (0-5/HPF) Urine WBC (0-5/HPF) Urine Bacteria (None) Ur Culture Indicated? Influenza A (RT-PCR) Flu a negative (NEGATIVE) Influenza B (RT-PCR) Flu b negative (NEGATIVE) 05/29/19 05/29/19 05/29/19 Range/Units 19:50 19:50 19:50 WBC (4.5-11.0) X10^3/uL RBC (4.0-5.2) X10^6/uL Hgb (12.0-16.0) g/dL Hct (36-46) % MCV (80-100) fL MCH (26-34) PG MCHC (30-36) % RDW (11.6-14.8) % Plt Count (150-400) X10^3/uL Neut % (Auto) (50-75) % Lymph % (Auto) (25-40) % [place] % (Auto) (3-14) % Eos % (Auto) (2-4) % Baso % (Auto) (0-2) % Neut # (Auto) (5501-2598) /uL Lymph # (Auto) (6174-9995) /uL [place] # (Auto) (0-900) /uL Eos # (Auto) (0-450) /uL Baso # (Auto) (0-100) /uL RBC Morphology Polychromasia Hypochromasia Anisocytosis Microcytosis PT (10.1-12.7) SECONDS INR (0.9-1.3) APTT (26.4-36.2) SECONDS Sodium 129 L (137-145) mmol/L Potassium 4.0 (3.4-5.1) mmol/L Chloride 97 L (98-107) mmol/L Carbon Dioxide 21 L (22-32) mmol/L BUN 10 (7-17) mg/dL Creatinine 0.52 (0.52-1.04) mg/dL Estimated GFR > 60.0 (>60) mL/min BUN/Creatinine Ratio 19.2 (6-22) Glucose 99 (80-110) mg/dL Lactate 2.9 H (0.7-2.1) mmol/L Calcium 9.4 (8.4-10.2) mg/dL Total Bilirubin 0.5 (0.2-1.3) mg/dL AST 28 (14-36) IU/L ALT 13 (<35) IU/L Alkaline Phosphatase 93 (38-126) U/L Total Creatine Kinase (30-135) U/L CK-MB (CK-2) CK-MB (CK-2) Rel Index Troponin I (0.01-0.034) ng/mL C-Reactive Protein (<1.0) mg/dL Total Protein 7.5 (6.3-8.2) g/dL Albumin 4.2 (3.5-5.0) g/dL Globulin 3.3 (1.7-4.1) g/dL Albumin/Globulin Ratio 1.3 (1.0-2.8) Lipase 105 (23-300) U/L Procalcitonin 0.38 (<0.5) ng/mL Urine Color Urine Appearance Urine pH (4.5-8.0) Ur Specific [place] (1.000-1.035) Urine Protein (Negative) Urine Glucose (UA) (Negative) g/dL Urine Ketones (NEGATIVE) Urine Occult Blood (Negative) Urine Nitrate (Negative) Urine Bilirubin (NEGATIVE) Urine Urobilinogen (0.2) E.U./dL Ur Leukocyte Esterase (NEGATIVE) Urine RBC (0-5/HPF) Urine WBC (0-5/HPF) Urine Bacteria (None) Ur Culture Indicated? Influenza A (RT-PCR) (NEGATIVE) Influenza B (RT-PCR) (NEGATIVE) 05/29/19 05/29/19 05/29/19 Range/Units 19:50 21:25 22:30 WBC (4.5-11.0) X10^3/uL RBC (4.0-5.2) X10^6/uL Hgb (12.0-16.0) g/dL Hct (36-46) % MCV (80-100) fL MCH (26-34) PG MCHC (30-36) % RDW (11.6-14.8) % Plt Count (150-400) X10^3/uL Neut % (Auto) (50-75) % Lymph % (Auto) (25-40) % [place] % (Auto) (3-14) % Eos % (Auto) (2-4) % Baso % (Auto) (0-2) % Neut # (Auto) (5358-4978) /uL Lymph # (Auto) (6550-7557) /uL [place] # (Auto) (0-900) /uL Eos # (Auto) (0-450) /uL Baso # (Auto) (0-100) /uL RBC Morphology Polychromasia Hypochromasia Anisocytosis Microcytosis PT (10.1-12.7) SECONDS INR (0.9-1.3) APTT (26.4-36.2) SECONDS Sodium (137-145) mmol/L Potassium (3.4-5.1) mmol/L Chloride (98-107) mmol/L Carbon Dioxide (22-32) mmol/L BUN (7-17) mg/dL Creatinine (0.52-1.04) mg/dL Estimated GFR (>60) mL/min BUN/Creatinine Ratio (6-22) Glucose (80-110) mg/dL Lactate 1.7 (0.7-2.1) mmol/L Calcium (8.4-10.2) mg/dL Total Bilirubin (0.2-1.3) mg/dL AST (14-36) IU/L ALT (<35) IU/L Alkaline Phosphatase (38-126) U/L Total Creatine Kinase 43 (30-135) U/L CK-MB (CK-2) TNP CK-MB (CK-2) Rel Index TNP Troponin I < 0.012 (0.01-0.034) ng/mL C-Reactive Protein 14.7 H (<1.0) mg/dL Total Protein (6.3-8.2) g/dL Albumin (3.5-5.0) g/dL Globulin (1.7-4.1) g/dL Albumin/Globulin Ratio (1.0-2.8) Lipase (23-300) U/L Procalcitonin (<0.5) ng/mL Urine Color Yellow Urine Appearance Clear Urine pH 6.5 (4.5-8.0) Ur Specific [place] <=1.005 (1.000-1.035) Urine Protein Negative (Negative) Urine Glucose (UA) Negative (Negative) g/dL Urine Ketones Trace H (NEGATIVE) Urine Occult Blood 2+ H (Negative) Urine Nitrate Negative (Negative) Urine Bilirubin Negative (NEGATIVE) Urine Urobilinogen 0.2 (0.2) E.U./dL Ur Leukocyte Esterase 3+ H (NEGATIVE) Urine RBC None seen (0-5/HPF) Urine WBC 1-5/hpf (0-5/HPF) Urine Bacteria Occasional (0-1) (None) Ur Culture Indicated? Specimen cultured Influenza A (RT-PCR) (NEGATIVE) Influenza B (RT-PCR) (NEGATIVE) 05/29/19 Range/Units 22:30 WBC (4.5-11.0) X10^3/uL RBC (4.0-5.2) X10^6/uL Hgb (12.0-16.0) g/dL Hct (36-46) % MCV (80-100) fL MCH (26-34) PG MCHC (30-36) % RDW (11.6-14.8) % Plt Count (150-400) X10^3/uL Neut % (Auto) (50-75) % Lymph % (Auto) (25-40) % [place] % (Auto) (3-14) % Eos % (Auto) (2-4) % Baso % (Auto) (0-2) % Neut # (Auto) (8965-1837) /uL Lymph # (Auto) (6569-0061) /uL [place] # (Auto) (0-900) /uL Eos # (Auto) (0-450) /uL Baso # (Auto) (0-100) /uL RBC Morphology Polychromasia Hypochromasia Anisocytosis Microcytosis PT (10.1-12.7) SECONDS INR (0.9-1.3) APTT (26.4-36.2) SECONDS Sodium (137-145) mmol/L Potassium (3.4-5.1) mmol/L Chloride (98-107) mmol/L Carbon Dioxide (22-32) mmol/L BUN (7-17) mg/dL Creatinine (0.52-1.04) mg/dL Estimated GFR (>60) mL/min BUN/Creatinine Ratio (6-22) Glucose (80-110) mg/dL Lactate (0.7-2.1) mmol/L Calcium (8.4-10.2) mg/dL Total Bilirubin (0.2-1.3) mg/dL AST (14-36) IU/L ALT (<35) IU/L Alkaline Phosphatase (38-126) U/L Total Creatine Kinase (30-135) U/L CK-MB (CK-2) CK-MB (CK-2) Rel Index Troponin I < 0.012 (0.01-0.034) ng/mL C-Reactive Protein (<1.0) mg/dL Total Protein (6.3-8.2) g/dL Albumin (3.5-5.0) g/dL Globulin (1.7-4.1) g/dL Albumin/Globulin Ratio (1.0-2.8) Lipase (23-300) U/L Procalcitonin (<0.5) ng/mL Urine Color Urine Appearance Urine pH (4.5-8.0) Ur Specific [place] (1.000-1.035) Urine Protein (Negative) Urine Glucose (UA) (Negative) g/dL Urine Ketones (NEGATIVE) Urine Occult Blood (Negative) Urine Nitrate (Negative) Urine Bilirubin (NEGATIVE) Urine Urobilinogen (0.2) E.U./dL Ur Leukocyte Esterase (NEGATIVE) Urine RBC (0-5/HPF) Urine WBC (0-5/HPF) Urine Bacteria (None) Ur Culture Indicated? Influenza A (RT-PCR) (NEGATIVE) Influenza B (RT-PCR) (NEGATIVE) Imaging Data CT scan - chest: Radiologist's Impression: [address] [address] [address] Scan Report Signed Patient: Norma Lowe [facility]#: [id number] : 6Acct:[id number] Age/Sex: 63 / FDate of Service: 05/29/19 Loc: ED Accession Number: [id number] Procedure: CT chest wo con Ordering Provider: Corky Bryan D.O. PROCEDURE: CT CHEST WO CON INDICATIONS: fever, chills, dry cough, severe SOB TECHNIQUE: Noncontrast 5 mm thick sections acquired from the pulmonary apices to the posterior costophrenic angles. 1 mm lung window, 5 mm thick coronal and sagittal and 7 mm axial MIP reformats were then acquired. For radiation dose reduction, the following was used: automated exposure control, adjustment of mA and/or kV according to patient size. COMPARISON: None. FINDINGS: Image quality: Excellent. Lungs and pleura: 1 mm left upper lobe pulmonary nodule, indeterminate. Scattered subsegmental atelectasis and/or scarring. No focal consolidation. No pleural effusions or pneumothorax. Central and peripheral airways are patent and normal in caliber. Mediastinum: Heart size is normal. No pericardial effusion. No mediastinal adenopathy by size criteria. Thoracic aorta and central pulmonary arteries are normal in size. Esophagus is normal in caliber. Moderate hiatal hernia. Bones and chest wall: No suspicious bony lesions. No vertebral body compression fractures. No axillary or supraclavicular adenopathy by size criteria. Thyroid gland negative. Abdomen: Visualized upper abdominal solid organs and bowel loops appear normal in the absence of contrast. IMPRESSION: Scattered subsegmental atelectasis and/or scarring. No focal consolidation. 1 mm indeterminate left upper lobe pulmonary nodule which could be followed up with one year interval chest CT as clinically warranted to exclude malignant/metastatic possibilities Moderate hiatal hernia Dictated by: Calvin Boateng M.D. on 05/29/2019 at 21:27 Approved by: Calvin Boateng M.D. on 05/29/2019 at 21:31 [facility] Narrative Medical decision making narrative: Patient has marked improvement after above-stated therapies over the duration of her visit. Initially Discharge Plan Departure Patient Disposition: Home Clinical Impression: Pneumonia, viral, Acute UTI Discharge Date/Time: 05/29/19 23:22 Instructions: DI for Urinary Tract Infection (UTI) Activity Restrictions/Additional Instructions: *You have been diagnosed with [UTI and viral pneumonia, which based on your symptoms, labs and imaging is highly suspicious for coronavirus] *What to do: * per recommendations from the CDC and the [facility] Department of Health * stay home except to get medical care. Restrict activities outside your home, except for getting medical care. Do not go to work, school, or public areas. Avoid using public transportation, ride sharing, or taxis. * separate yourself from other people in your home. * call ahead before visiting your doctor * Wear a facemask * Cover your coughs and sneezes * Clean your hands often * Avoid sharing household items * Clean all high-touch services every day * Monitor your symptoms and seek prompt medical attention if your illness is worsening, particularly with difficulty in breathing. Discussed continuing home isolation * for individuals with symptoms who are confirmed or suspected cases of COVID-19 and are directed to care for themselves at home, discontinue home isolation under the following conditions: 1. At least 72 hours have passed since recovery, defined as resolution of fever without the use of fever reducing medications, and improvement in respiratory symptoms (cough, shortness of breath) AND, 2. At least 7 days have passed since symptoms 1st appeared Individuals with laboratory confirmed COVID-19 who have not had any symptoms may discontinue home isolation when at least 7 days have passed since the date of their 1st COVID-19 diagnostic test and have had no subsequent illness Your antibiotic has been electronically transmitted to [facility] Prescriptions: New cephalexin [Keflex] 500 mg capsule 500 mg PO QID 7 Days Qty: 28 RF: 0 No Action atenolol 25 MG tablet 25 mg PO QDAY Qty: 90 RF: 3 fluticasone propionate 16 GM spray,suspension 0 Intranasal QDAY Qty: 16 RF: 3 albuterol sulfate [Proventil HFA] 90 mcg/actuation HFA aerosol inhaler 2 puff INHALATION SEE INSTRUCTIONS Qty: 1 RF: 2 levothyroxine 88 mcg tablet 88 mcg PO DAILY Qty: 90 RF: 3 venlafaxine 75 mg tablet 75 mg PO BID Qty: 180 RF: 3 potassium chloride 20 mEq tablet extended release 20 meq PO DAILY Qty: 7 RF: 0 Referrals: Traci Barney ARNP [Primary Care Provider] -
[2019-05-29 20:03] LABS: Add Manual Diff / Slide Review NO; Basophils Absolute Auto 0 /uL (0-100); Basophils Percent Auto 0.3 % (0-2); Eosinophils Absolute Auto 0 /uL (0-450); Eosinophils Percent Auto 0.1 % (2-4); Hematocrit 31.8 % (36-46); Hemoglobin 10.1 g/dL (12.0-16.0); Lymphocytes Absolute Auto 600 /uL (1100-4500); Lymphocytes Percent Auto 4.9 % (25-40); Mean Corpuscular HGB Conc 31.8 % (30-36); Mean Corpuscular Hemoglobin 24.8 PG (26-34); Monocytes Absolute Auto 800 /uL (0-900); Monocytes Percent Auto 6.4 % (3-14); Neutrophils Absolute Auto 11100 /uL (1500-7000); Neutrophils Percent Auto 88.3 % (50-75); Platelet Count 320 X10^3/uL (150-400); Red Blood Cell Count 4.08 X10^6/uL (4.0-5.2); Red Cell Distribution Width 27.1 % (11.6-14.8); White Blood Cell Count 12.6 X10^3/uL (4.5-11.0)
[2019-05-29 20:07] LABS: Influenza A - CEPHEID Flu A NEGATIVE (NEGATIVE); Influenza B - CEPHEID Flu B NEGATIVE (NEGATIVE)
[2019-05-29 20:13] LABS: Prothrombin Time 11.3 SECONDS (10.1-12.7)
[2019-05-29 20:14] LABS: Creatine Kinase 43 U/L (30-135)
[2019-05-29 20:15] LABS: Lactate (Lactic Acid) 2.9 mmol/L (0.7-2.1); PTT Partial Thromboplastin Tim 27 SECONDS (26.4-36.2)
[2019-05-29 20:16] LABS: Alanine Aminotransferase 13 IU/L (<35); Albumin 4.2 g/dL (3.5-5.0); Albumin Globulin Ratio 1.3 (1.0-2.8); Alkaline Phosphatase 93 U/L (38-126); Aspartate Aminotransferase 28 IU/L (14-36); BUN Creatinine Ratio 19.2 (6-22); Bilirubin Total 0.5 mg/dL (0.2-1.3); Blood Urea Nitrogen 10 mg/dL (7-17); Calcium 9.4 mg/dL (8.4-10.2); Carbon Dioxide 21 mmol/L (22-32); Chloride 97 mmol/L (98-107); Estimated Glomerular Filt Rate > 60.0 mL/min (>60); Globulin 3.3 g/dL (1.7-4.1); Glucose 99 mg/dL (80-110); HEMOLYSIS < 15 (0-50); Lipase 105 U/L (23-300); Sodium 129 mmol/L (137-145); Total Protein 7.5 g/dL (6.3-8.2)
[2019-05-29 20:27] LABS: Troponin I < 0.012 ng/mL (0.01-0.034)
--- NOTE | 2019-05-29 20:30 | DI.CT.S_ITS ---
PROCEDURE: CT CHEST WO CON INDICATIONS: fever, chills, dry cough, severe SOB TECHNIQUE: Noncontrast 5 mm thick sections acquired from the pulmonary apices to the posterior costophrenic angles. 1 mm lung window, 5 mm thick coronal and sagittal and 7 mm axial MIP reformats were then acquired. For radiation dose reduction, the following was used: automated exposure control, adjustment of mA and/or kV according to patient size. COMPARISON: None. FINDINGS: Image quality: Excellent. Lungs and pleura: 1 mm left upper lobe pulmonary nodule, indeterminate. Scattered subsegmental atelectasis and/or scarring. No focal consolidation. No pleural effusions or pneumothorax. Central and peripheral airways are patent and normal in caliber. Mediastinum: Heart size is normal. No pericardial effusion. No mediastinal adenopathy by size criteria. Thoracic aorta and central pulmonary arteries are normal in size. Esophagus is normal in caliber. Moderate hiatal hernia. Bones and chest wall: No suspicious bony lesions. No vertebral body compression fractures. No axillary or supraclavicular adenopathy by size criteria. Thyroid gland negative. Abdomen: Visualized upper abdominal solid organs and bowel loops appear normal in the absence of contrast. IMPRESSION: Scattered subsegmental atelectasis and/or scarring. No focal consolidation. 1 mm indeterminate left upper lobe pulmonary nodule which could be followed up with one year interval chest CT as clinically warranted to exclude malignant/metastatic possibilities Moderate hiatal hernia Dictated by: Calvin Boateng M.D. on 05/29/2019 at 21:27 Approved by: Calvin Boateng M.D. on 05/29/2019 at 21:31
[2019-05-29 20:34] LABS: Procalcitonin 0.38 ng/mL (<0.5)
[2019-05-29 20:36] LABS: Anisocytosis 3+; Hypochromasia 2+; Microcytosis 1+; Polychromasia 1+
[2019-05-29] MEDS: CEFTRIAXONE 1 GM/50 ML FROZ.PIGGY IV (21:01)
[2019-05-29 21:06] VITALS: TEMP 37.4
[2019-05-29 21:08] LABS: C-Reactive Protein Quant 14.7 mg/dL (<1.0)
[2019-05-29 21:34] LABS: RBC Urine None Seen (0-5/HPF)
[2019-05-29 21:35] LABS: Appearance Urine UA CLEAR; Bilirubin Urine UA NEGATIVE (NEGATIVE); Color Urine UA YELLOW; Glucose Urine UA NEGATIVE (Negative); Ketones Urine UA TRACE (NEGATIVE); Leukocyte Esterase Urine UA 3+ (NEGATIVE); Nitrite Urine UA NEGATIVE (Negative); Occult Blood Urine UA 2+ (Negative); Protein Urine UA NEGATIVE (Negative); Specific Gravity Urine UA <=1.005 (1.000-1.035); Urobilinogen Urine UA 0.2 E.U./dL (0.2)
[2019-05-29 21:41] LABS: pH Urine UA 6.5 (4.5-8.0)
[2019-05-29 21:50] LABS: Bacteria Urine Occasional (0-1); Culture Indicated Urine Specimen Cultured; WBC Urine 1-5/HPF (0-5/HPF)
[2019-05-29 21:55] LABS: Reflexed Lactate in 2 Hours Y
[2019-05-29 22:52] LABS: Lactate (Lactic Acid) 1.7 mmol/L (0.7-2.1)
[2019-05-29 23:05] LABS: Troponin I < 0.012 ng/mL (0.01-0.034)
[2019-05-29 23:15] VITALS: BP 168/74; PULSE 99; RESP 16; TEMP 37.2; O2SAT 98
[2019-06-01 14:36] LABS: COVID19 Sendout Not Detected (Not Detected)
== END 2019-05-29 23:22 | disposition home or self-care (01) ==
PROVIDERS: Emergency Provider Emergency Medicine; PCP Internal Medicine
DX: J12.9 Viral pneumonia, unspecified (principal); N39.0 Urinary tract infection, site not specified; E03.9 Hypothyroidism, unspecified; J45.909 Unspecified asthma, uncomplicated; I10 Essential (primary) hypertension; J02.9 Acute pharyngitis, unspecified; R05 Cough; R51 Headache; R30.0 Dysuria; R06.00 Dyspnea, unspecified
CPT/HCPCS: 36415; 71045; 71250; 80053; 81001; 82550; 83605; 83690; 84145; 84484; 85025; 85610; 85730; 86140; 87040; 87086; 87502; 87635; 96361; 96365; 99284

== ENCOUNTER → 2019-11-23 12:04 | Outpatient (CLI) | payer OTHER, SELFPAY ==
--- NOTE | 2019-11-23 12:21 | DI.CT.S_ITS ---
PROCEDURE: CT CHEST WO CON INDICATIONS: Lung nodule TECHNIQUE: Noncontrast 2.0-2.5 mm thick sections acquired from the pulmonary apices to the posterior costophrenic angles. 7 mm thick axial MIP and 5 mm coronal and sagittal reformats were then acquired. A low radiation dose technique was utilized. COMPARISON: [facility], CT, CT CHEST WO CON, 05/29/2019, 20:35. FINDINGS: Image quality: Diagnostic, given the low radiation dose technique. Lungs and pleura: 1-2 mm nodule involving the left upper lobe is unchanged since 05/29/19. Additional 1-2 mm subpleural and pleural based nodules in the left lung base also unchanged. Scattered subsegmental atelectasis and/or scarring. No focal consolidation. Airway thickening in keeping with nonspecific bronchitis and/or reactive airways disease. Mediastinum: Heart size is normal. No pericardial effusion. No mediastinal adenopathy by size criteria. Thoracic aorta and central pulmonary arteries are normal in size. Esophagus is normal in caliber. No hiatal hernia. Bones and chest wall: No suspicious bony lesions. No vertebral body compression fractures. No axillary or supraclavicular adenopathy by size criteria. Thyroid gland negative . Moderate hiatal hernia. IMPRESSION: Stable examination, Re-demonstrating sub 5 mm left-sided pulmonary nodules which appear unchanged. Recommend definitive follow-up in [address] Fleischner Society criteria for SOLID lung nodule followup. Nodule size (mm)Low-risk patientHigh-risk patient<6 (single or multiple)No routine followup.Optional CT at 12 months. 6-8 (single or multiple)CT at 6-12 months, then optional CT at 18-24 mo.CT at 6-12 months, then CT at 18-24 months. >8 (single)CT at 3 months, PET-CT, or biopsy. Same as for low-risk pts. >8 (multiple)CT at 3-6 months, then optional CT at 18-24 mo.CT at 3-6 months, then CT at 18-24 months. Fleischner Society criteria for SUB-SOLID lung nodule followup. Solitary pure ground-glass nodules<6 mm (ground glass or part solid)No followup needed. 6 mm or larger (ground glass)CT at 6-12 months to confirm persistence, then CT every 2 years until 5 years.6 mm or larger (part solid)CT at 3-6 months to confirm persistence, then annual CT until 5 years if unchanged and solid component remains <6 mm. Multiple sub-solid nodules<6 mmCT at 3-6 months, then CT consider at 2 & 4 years for high risk patients. [address] at 3-6 months. Subsequent management based on most suspicious lesions. Recommendations do not apply to lung cancer screening, patients with immunosuppression, or patients with known primary cancer. Dictated by: Calvin Boateng M.D. on 11/23/2019 at 15:56 Approved by: Calvin Boateng M.D. on 11/23/2019 at 16:05
== END ==
PROVIDERS: PCP Internal Medicine; Referring Provider Internal Medicine; Visit Provider Internal Medicine
DX: R91.8 Other nonspecific abnormal finding of lung field (principal); K44.9 Diaphragmatic hernia without obstruction or gangrene
CPT/HCPCS: 71250

== ENCOUNTER → 2021-06-13 10:26 | Outpatient (CLI) | payer MEDICARE, SELFPAY ==
--- NOTE | 2021-06-13 | DI.MG.S_ITS ---
BILATERAL DIGITAL SCREENING MAMMOGRAM 3D/2D WITH CAD: 06/13/2021 CLINICAL: Routine screening. No prior exams were available for comparison. The tissue of both breasts is predominantly fatty. Current study was also evaluated with a Computer Aided Detection (CAD) system. No significant masses, calcifications, or other findings are seen in either breast. IMPRESSION: NEGATIVE There is no mammographic evidence of malignancy. A 1 year screening mammogram is recommended. This exam was interpreted at Station ID: [id number]. NOTE: For mammograms, a report in lay terms will be sent to the patient. Approximately 15% of breast malignancies will not be visualized mammographically. In the management of a palpable breast mass, a negative mammogram must not discourage biopsy of a clinically suspicious lesion. Electronically Signed By: Abner Borges acr/penrad:06/13/2021 13:14:49 letter sent: Normal Exam ACR BI-RADS Category 1: Negative [id number]
== END ==
PROVIDERS: PCP Internal Medicine; Referring Provider Internal Medicine; Visit Provider Internal Medicine
DX: Z12.31 Encounter for screening mammogram for malignant neoplasm of breast; M81.0 Age-related osteoporosis without current pathological fracture; Z78.0 Asymptomatic menopausal state
CPT/HCPCS: 77063; 77067; 77080

== ENCOUNTER → 2021-06-15 10:58 | Outpatient (CLI) | payer MEDICARE, SELFPAY ==
--- NOTE | 2021-06-15 | DI.CT.S_ITS ---
PROCEDURE: CT CHEST WO CON INDICATIONS: Solitary pulmonary nodule TECHNIQUE: Noncontrast 5 mm thick sections acquired from the pulmonary apices to the posterior costophrenic angles. 1 mm lung window, 5 mm thick coronal and sagittal and 7 mm axial MIP reformats were then acquired. For radiation dose reduction, the following was used: automated exposure control, adjustment of mA and/or kV according to patient size. COMPARISON: [facility], CT, CT ANGIO CHEST PE PROTOCOL, 04/26/2019, 17:48. [facility], CT, CT CHEST WO CON, 05/29/2019, 20:35. [facility], CT, CT CHEST WO CON, 11/23/2019, 12:17. FINDINGS: Image quality: Excellent. Lungs and pleura: A pleural based pulmonary nodule, left lower lobe, measuring up to 5 mm, is stable. Reference image 213/6 of the study dated 04/26/2019 and the current study on image 230/3. Stable 2 mm subpleural pulmonary nodule, posterior inferior right upper lobe, current image 139/3 and previous image 129/6. No new or increasing pulmonary nodules. No acute air space opacities. No pleural effusions or pneumothorax. Central and peripheral airways are patent and normal in caliber. Mediastinum: Heart size is normal. No pericardial effusion. No mediastinal adenopathy by size criteria. Thoracic aorta and central pulmonary arteries are normal in size. Esophagus is normal in caliber. Large hiatal hernia. Bones and chest wall: No suspicious bony lesions. No vertebral body compression fractures. No axillary or supraclavicular adenopathy by size criteria. Thyroid gland is unremarkable as visualized . Abdomen: Visualized upper abdominal solid organs and bowel loops appear normal in the absence of contrast. IMPRESSION: 1. Pulmonary nodules are stable in size times greater than 2 years, consistent with bilateral benign pulmonary nodules. 2. Large hiatal hernia. 3. Mild centrilobular emphysema. Comment: Consider yearly lung screen CT in this patient if satisfies the risk factors necessary for such screening imaging. Dictated by: Gerard Winchester M.D. on 06/15/2021 at 12:33 Approved by: Gerard Winchester M.D. on 06/15/2021 at 12:42
== END ==
PROVIDERS: PCP Internal Medicine; Referring Provider Internal Medicine; Visit Provider Internal Medicine
DX: R91.8 Other nonspecific abnormal finding of lung field (principal); K44.9 Diaphragmatic hernia without obstruction or gangrene; J43.2 Centrilobular emphysema
CPT/HCPCS: 71250

== ENCOUNTER → 2021-11-08 10:18 | Outpatient (CLI) | payer MEDICARE, SELFPAY ==
--- NOTE | 2021-11-08 10:21 | DI.RAD.S_ITS ---
PROCEDURE: XR HIP W PEL IF DONE LT 2V INDICATIONS: Left groin pain TECHNIQUE: Left views of the hip were acquired. COMPARISON: None. FINDINGS: Bones: No fractures or dislocations. No suspicious bony lesions. The visualized pelvic ring appears intact. Soft tissues: No suspicious soft tissue calcifications or masses. IMPRESSION: Normal pelvis and left hip radiographs Approved by: Konstantin Wisdom M.D. on 11/08/2021 at 15:32
== END ==
PROVIDERS: PCP Internal Medicine; Referring Provider Internal Medicine; Visit Provider Internal Medicine
DX: R10.32 Left lower quadrant pain (principal)
CPT/HCPCS: 73502

== ENCOUNTER → 2021-12-20 08:09 | Outpatient (CLI) | payer MEDICARE, SELFPAY ==
--- NOTE | 2021-12-20 | DI.MRI.S_ITS ---
PROCEDURE: MR HIP LT WO CON INDICATIONS: Pain in left hip TECHNIQUE: Noncontrast coronal T1 spin echo and STIR through the bony pelvis. Coronal and axial T2 fast spin echo with fat saturation, sagittal T1 spin echo, and oblique axial T2 fast spin echo with fat saturation through the hip. COMPARISON: [facility], CR, XR HIP W PEL IF DONE LT 2V, 11/08/2021, 10:29. FINDINGS: Image quality: Excellent. Left hip: There is moderate osseous edema within the anterior femoral head extending into the femoral neck and intertrochanteric region. Focal cortical irregularity is seen in the anterosuperior humeral head articular surface measuring 6 x 8 mm that is suspicious for a small subchondral fracture. There is a moderate left hip effusion. Multifocal cartilage irregularity is seen at the superior and to a lesser extent posterior aspect of the hip with marginal osteophyte formation. There is diffuse labral degeneration. Bones and joints: Bone marrow of the pelvic ring and right proximal femur show normal signal throughout. No intraosseous lesions or fractures. No avascular necrosis of the femoral heads. The visualized lower lumbar spine demonstrates disc desiccation and facet hypertrophy. Tendons and ligaments: There is moderate distal gluteus medius and minimus tendinosis with trace trochanteric and subgluteal bursal effusions. The proximal iliotibial band appears intact. The iliopsoas tendon appears intact, without adjacent bursal fluid collections. The origin of the hamstring tendon is intact at the ischial tuberosity. The direct and indirect heads of the rectus femoris muscle origin appear intact. Soft tissues: Visualized muscles demonstrate normal bulk and internal signal. Quadratus femoris muscle demonstrates no internal edema to suggest ischiofemoral impingement. The proximal sciatic neurovascular bundle appears intact. The included portions of the pelvis demonstrate no acute abnormality. Few diverticula are seen in the colon. IMPRESSION: 1. Suspected small subchondral insufficiency fracture at the anterosuperior left femoral head without significant articular surface depression. Moderate osseous edema is seen throughout the left proximal femur. Moderate left hip effusion. 2. 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 3. Moderate distal left gluteus medius and minimus tendinosis. 4. Degenerative changes in the lower lumbar spine. Approved by: Amor Her M.D. on 12/20/2021 at 11:19
== END ==
PROVIDERS: PCP Internal Medicine; Referring Provider Internal Medicine; Visit Provider Internal Medicine
DX: M94.252 Chondromalacia, left hip (principal); M25.452 Effusion, left hip; M47.816 Spondylosis without myelopathy or radiculopathy, lumbar region; M25.552 Pain in left hip; R10.32 Left lower quadrant pain
CPT/HCPCS: 73721

== ENCOUNTER 2022-03-27 12:04 | Emergency (ER) | payer MEDICARE, SELFPAY ==
[2022-03-27] VITALS (35 sets, daily range): BP systolic 193–234; BP diastolic 93–110; PULSE 54–172; RESP 13–36; TEMP 36.8; O2SAT 92–99; BMI 23.8
[2022-03-27 12:31] LABS: Add Manual Diff / Slide Review NO; Basophils Absolute Auto 0 /uL (0-100); Basophils Percent Auto 0.3 % (0-2); Eosinophils Absolute Auto 0 /uL (0-450); Hematocrit 42.6 % (36-46); Hemoglobin 14.5 g/dL (12.0-16.0); Lymphocytes Absolute Auto 500 /uL (1100-4500); Lymphocytes Percent Auto 4.8 % (25-40); Mean Corpuscular Volume 97.1 fL (80-100); Monocytes Absolute Auto 700 /uL (0-900); Monocytes Percent Auto 6.5 % (3-14); Neutrophils Absolute Auto 8900 /uL (1500-7000); Neutrophils Percent Auto 88.4 % (50-75); Platelet Count 284 X10^3/uL (150-400); Red Blood Cell Count 4.39 X10^6/uL (4.0-5.2)
[2022-03-27 12:36] LABS: Alanine Aminotransferase 33 IU/L (<35); Albumin 4.5 g/dL (3.5-5.0); Albumin Globulin Ratio 1.3 (1.0-2.8); Alkaline Phosphatase 100 U/L (38-126); Aspartate Aminotransferase 68 IU/L (14-36); BUN Creatinine Ratio 39.7 (6-22); Bilirubin Total 0.9 mg/dL (0.2-1.3); Blood Urea Nitrogen 27 mg/dL (7-17); Calcium 10.5 mg/dL (8.4-10.2); Carbon Dioxide 29 mmol/L (22-32); Chloride 90 mmol/L (98-107); Estimated Glomerular Filt Rate > 60 mL/min (>60); Globulin 3.6 g/dL (1.7-4.1); Glucose 135 mg/dL (80-110); HEMOLYSIS < 15 (0-50); Potassium 4.8 mmol/L (3.4-5.1); Sodium 131 mmol/L (137-145); Total Protein 8.1 g/dL (6.3-8.2)
[2022-03-27] MEDS: PANTOPRAZOLE 40 MG VIAL 80 MG IV (12:36)
[2022-03-27 12:49] LABS: INR 0.9 (0.9-1.3); Prothrombin Time 10.8 SECONDS (10.1-12.7)
[2022-03-27 12:52] LABS: PTT Partial Thromboplastin Tim 30 SECONDS (26-36)
[2022-03-27 13:15] LABS: Amorphous Sediment Urine 1+; Bacteria Urine None Seen; Culture Indicated Urine Specimen Cultured; RBC Urine 5-10/HPF (0-5/HPF); Squamous Epithelial Cell Urine 1-5 /HPF (0-5/HPF); WBC Urine 1-5/HPF (0-5/HPF)
--- NOTE | 2022-03-27 13:35 | DI.CT.S_ITS ---
PROCEDURE: CT ABDOMEN PELVIS W CON INDICATIONS: Bloody stool TECHNIQUE: After the administration of oral and IV contrast, axial sections were acquired from the lung bases to the pubic symphysis. Coronal and sagittal reformats were performed. For radiation dose reduction, the following was used: automated exposure control, adjustment of mA and/or kV according to patient size. COMPARISON: [facility], CT, CT CHEST WO [facility], 06/15/2021, 11:12. FINDINGS: Image quality: Excellent. Lung bases: Unremarkable. There is a large hiatal hernia seen, which contains the majority of the stomach. Heart: No significant findings. ABDOMEN: Liver: Diffuse fatty liver infiltration is noted. The liver is normal in size and demonstrates no suspicious lesions. Gallbladder: Unremarkable. Biliary ducts: Unremarkable. Pancreas: Unremarkable. Spleen: Unremarkable. Adrenal Glands: Unremarkable. Kidneys and Ureters: Unremarkable. Stomach and Bowel: There is moderate to prominent nodule wall thickening seen throughout the distal colon, beginning at the level of the distal transverse colon and continuing through the sigmoid colon, with mild involvement of rectum. Moderate surrounding inflammatory change can be seen, with mild generalized free fluid seen adjacent to the inflamed colon. Mild distal colonic diverticulosis is seen. The more proximal colon is unremarkable. A normal appendix is faintly seen. No dilated loops of small bowel are seen. Peritoneum: No peritoneal abscess is seen. No free air. Ventral Wall: A mild periumbilical hernia is seen, containing fat. Abdominal Nodes: No retroperitoneal or mesenteric adenopathy by size criteria. Vessels: Aorta and inferior vena cava are normal in size. PELVIS: Pelvic Organs: The uterus appears normal for age. No adnexal masses are seen. Bladder: Unremarkable. Pelvic Nodes: No enlarged lymph nodes. Miscellaneous: No inguinal hernias are seen. Bones: Unremarkable. IMPRESSION: Moderate distal colonic wall thickening can be seen. Please correlate with potential infectious and inflammatory causes of colitis, including C. difficile colitis. No findings of perforation or abscess can be seen. Additional findings: Large hiatal hernia Mild fat containing periumbilical hernia Fatty liver infiltration Dictated by: Travis Ding M.D. on 03/27/2022 at 13:19 Approved by: Travis Ding M.D. on 03/27/2022 at 13:23
[2022-03-27] MEDS: MORPHINE 4 MG/ML INJ IV (13:54)
[2022-03-27] MEDS: ONDANSETRON 4 MG/2 ML INJ IV ×2 (13:54→15:15)
[2022-03-27] MEDS: SODIUM CHLORIDE 0.9% 1,000 ML 1000 ML IV ×2 (15:09→17:36)
[2022-03-27] MEDS: atenoloL 25 MG TABLET PO (16:48)
[2022-03-27 18:14] LABS: Add Manual Diff / Slide Review NO; Basophils Absolute Auto 0 /uL (0-100); Basophils Percent Auto 0.3 % (0-2); Eosinophils Absolute Auto 0 /uL (0-450); Eosinophils Percent Auto 0.1 % (2-4); Hematocrit 37.6 % (36-46); Hemoglobin 12.7 g/dL (12.0-16.0); Lymphocytes Absolute Auto 900 /uL (1100-4500); Lymphocytes Percent Auto 10.5 % (25-40); Mean Corpuscular HGB Conc 33.7 % (30-36); Mean Corpuscular Hemoglobin 32.9 PG (26-34); Mean Corpuscular Volume 97.8 fL (80-100); Monocytes Absolute Auto 800 /uL (0-900); Monocytes Percent Auto 9.1 % (3-14); Neutrophils Absolute Auto 7000 /uL (1500-7000); Platelet Count 239 X10^3/uL (150-400); Red Blood Cell Count 3.85 X10^6/uL (4.0-5.2); Red Cell Distribution Width 20.5 % (11.6-14.8); White Blood Cell Count 8.7 X10^3/uL (4.5-11.0)
[2022-03-27 18:26] LABS: Alanine Aminotransferase 25 IU/L (<35); Albumin 3.5 g/dL (3.5-5.0); Albumin Globulin Ratio 1.3 (1.0-2.8); Alkaline Phosphatase 73 U/L (38-126); Aspartate Aminotransferase 46 IU/L (14-36); BUN Creatinine Ratio 32.3 (6-22); Bilirubin Total 0.9 mg/dL (0.2-1.3); Blood Urea Nitrogen 21 mg/dL (7-17); Calcium 8.7 mg/dL (8.4-10.2); Carbon Dioxide 27 mmol/L (22-32); Chloride 96 mmol/L (98-107); Estimated Glomerular Filt Rate > 60 mL/min (>60); Globulin 2.8 g/dL (1.7-4.1); Glucose 91 mg/dL (80-110); HEMOLYSIS < 15 (0-50); Potassium 4.9 mmol/L (3.4-5.1); Sodium 131 mmol/L (137-145); Total Protein 6.3 g/dL (6.3-8.2)
[2022-03-27 18:37] LABS: Anisocytosis 2+
[2022-03-27] MEDS: lisinopriL 10 MG TABLET PO (18:50)
--- NOTE | 2022-03-27 19:30 | ED.GIBLEED ---
HPI - GI Bleed <Chandler Mendoza PA-C - Last Filed: 03/27/22 19:47> General Chief complaint: GI Bleed Stated complaint: bleeding from rectum, bp is high, dizzy, cramping Time Seen by Provider: 03/27/22 12:13 Source: patient Mode of arrival: Wheelchair History of Present Illness HPI Narrative: 66-year-old female past medical history hypertension, depression, hypothyroidism, GERD, anxiety presents to the ED with 2 days of abdominal cramping, 1 day of bloody stools. Patient states that her abdominal cramping started last night, she started having multiple bloody stools which consisted of big blood clots. Patient also endorses nausea and vomiting this morning. Patient denies fevers, endorses chills. Patient denies chest pain, shortness of breath, dysuria, syncope. Patient endorses transient lightheadedness. Patient denies history of hemorrhoids. Patient has had a colonoscopy in the past with no acute findings. Patient has been taking ibuprofen daily for a groin injury for almost 2 months. Related Data Home Medications Medication Instructions Recorded Confirmed atenolol 100 mg tablet 100 mg PO DAILY 04/09/22 04/09/22 levothyroxine 75 mcg tablet 75 mcg PO DAILY 04/09/22 04/09/22 venlafaxine 50 mg tablet 50 mg PO TID 04/09/22 04/09/22 Allergies Allergy/AdvReac Type Severity Reaction Status Date / Time Sulfa (Sulfonamide Allergy Mild Verified 04/09/22 09:19 Antibiotics) [SULFA (SULFONAMIDE ANTIBIOTICS)] Review of Systems <Chandler Mendoza PA-C - Last Filed: 03/27/22 19:47> Review of Systems ROS Unobtainable: All systems reviewed & are unremarkable except as noted in HPI and below Constitutional Constitutional: Reports chills, Reports fatigue, Denies fever(s), Denies frequent falls, Denies lethargy and Denies weakness Eyes Eyes: Denies change in vision, Denies eye discharge, Denies irritation and Denies loss of vision ENT Ears, Nose, Mouth, and Throat: Denies change in voice, Denies dizziness, Denies neck pain, Denies sore throat and Denies throat swelling Cardiovascular Cardiovascular: Denies chest pain, Denies irregular heart rhythm, Reports lightheadedness, Denies palpitations, Denies dyspnea, Denies dyspnea on exertion and Denies orthopnea Respiratory Respiratory: Denies cough, Denies dyspnea, Denies dyspnea on exertion and Denies wheezing Gastrointestinal Gastrointestinal: Reports hematochezia, Denies change in bowel habits, Reports cramping, Denies diarrhea, Reports nausea and Reports vomiting Genitourinary Genitourinary: Denies hematuria, Denies flank pain, Denies urinary incontinence and Denies urinary urgency Musculoskeletal Musculoskeletal: Denies back pain, Denies muscle weakness, Denies neck pain, Denies numbness and Denies tingling Integumentary/Breasts Skin/Breast: Denies pruritus, Denies erythema, Denies rash and Denies wounds Neurologic Neurologic: Denies behavioral changes, Denies confusion, Denies dizziness, Denies frequent falls, Denies loss of vision, Denies numbness, Denies tingling and Denies weakness Psychiatric Psychiatric: Denies anxiety, Denies behavioral changes, Denies confusion, Denies depression, Denies homicidal ideation and Denies suicidal ideation Endocrine Endocrine: Reports fatigue, Denies flushing and Denies palpitations Hematologic/Lymphatic Hematologic/Lymphatic: Denies easy bruising Allergic/Immunologic Allergic/Immunologic: Denies urticaria, Denies throat swelling and Denies wheezing Patient History <Chandler Mendoza PA-C - Last Filed: 03/27/22 19:47> Medical History (Updated 04/11/22 @ 00:01 by ) Anxiety Bronchiectasis (~1993) Depression GERD (gastroesophageal reflux disease) Hypothyroidism Surgical History Anesthesia History of bilateral salpingo-oophorectomy (BSO) (~06/2012) Family History Father Age: 93 Stroke CAD (coronary artery disease) Mother Age: 90 Hypertension Grandfather No problems noted. Grandmother Cancer Grandfather No problems noted. Social History Smoking Status: Current every day smoker Smoking Status: Current every day smoker tobacco type: cigarettes alcohol intake frequency: a few times a week Alcohol type: wine and hard liquor Substance Use Type: does not use Exam <Chandler Mendoza PA-C - Last Filed: 03/27/22 19:47> Narrative Exam Narrative: Const General:?cooperative, healthy appearing and comfortable [facility] Head:?normal to inspection Ears:?hearing grossly normal bilaterally Nose:?external nose normal Face and sinus:?normal facial exam and sinuses nontender Mouth:?oral mucosae normal Throat:?posterior oropharynx normal Eyes General:?appearance normal, both eyes and all related structures Neck Neck:?normal visual inspection and no lymphadenopathy noted Resp Effort & Inspection:?normal respiratory effort Auscultation:?clear to auscultation bilaterally Cardio Rate:?regular rate Rhythm:?regular rhythm GI Abdomen is soft, nondistended, diffusely tender to palpation. There is no CVA tenderness. Neuro General:?patient alert, patient awake and patient oriented x3 Initial Vital Signs Initial Vital Signs: Vital Signs Pulse Rate 76 03/27/22 12:09 Pulse Oximetry 97 03/27/22 12:09 <Alejandro Rider MD - Last Filed: 04/12/22 07:24> Initial Vital Signs Initial Vital Signs: Vital Signs Pulse Rate 76 03/27/22 12:09 Pulse Oximetry 97 03/27/22 12:09 Course <Chandler Mendoza PA-C - Last Filed: 03/27/22 19:47> Orders Ordered: Discontinued Medications Atenolol (Atenolol 25 Mg Tablet) 25 mg PO NOW ONE Stop: 03/27/22 16:34 Last Admin: 03/27/22 16:48 Dose: 25 mg Documented By: EMMIE Sodium Chloride (Normal Saline 0.9%) 1,000 mls @ 1,000 mls/hr IV BOLUS ONE Stop: 03/27/22 16:04 Last Infusion: 03/27/22 16:43 Dose: 0 mls/hr Documented By: Admin: 03/27/22 15:09 Dose: 1,000 mls/hr Documented By: NAE Sodium Chloride (Normal Saline 0.9%) 1,000 mls @ 1,000 mls/hr IV BOLUS ONE Stop: 03/27/22 18:23 Last Infusion: 03/27/22 18:45 Dose: 0 mls/hr Documented By: Admin: 03/27/22 17:36 Dose: 1,000 mls/hr Documented By: TRUNG Lisinopril (Lisinopril 10 Mg Tablet) 10 mg PO NOW ONE Stop: 03/27/22 18:39 Last Admin: 03/27/22 18:50 Dose: 10 mg Documented By: NAE Morphine Sulfate (Morphine 4 Mg/Ml Inj) 4 mg IV NOW ONE Stop: 03/27/22 13:37 Last Admin: 03/27/22 13:54 Dose: 4 mg Documented By: NAE Ondansetron HCl (Ondansetron 4 Mg/2 Ml Inj) 4 mg IV NOW ONE Stop: 03/27/22 13:37 Last Admin: 03/27/22 13:54 Dose: 4 mg Documented By: NAE Ondansetron HCl (Ondansetron 4 Mg/2 Ml Inj) 4 mg IV NOW ONE Stop: 03/27/22 15:06 Last Admin: 03/27/22 15:15 Dose: 4 mg Documented By: NAE Pantoprazole Sodium (Pantoprazole 40 Mg Vial) 80 mg IV NOW ONE Stop: 03/27/22 12:21 Last Admin: 03/27/22 12:36 Dose: 80 mg Documented By: EMMIE Vital Signs Vital signs: Vital Signs - 8 hr 03/27/22 12:17 03/27/22 12:09 03/27/22 12:30 Temperature 98.3 F Pulse Rate 76 76 65 Respiratory Rate 20 18 Blood Pressure 230/110 H Pulse Oximetry 99 97 98 Oxygen Delivery Method Room Air 03/27/22 12:31 03/27/22 12:31 03/27/22 12:48 Temperature Pulse Rate 64 Respiratory Rate 23 Blood Pressure 219/100 H 212/105 H Pulse Oximetry 98 Oxygen Delivery Method 03/27/22 12:48 03/27/22 13:00 03/27/22 13:00 Temperature Pulse Rate 64 60 Respiratory Rate 20 16 Blood Pressure 215/105 H Pulse Oximetry 99 99 Oxygen Delivery Method 03/27/22 13:30 03/27/22 13:31 03/27/22 13:31 Temperature Pulse Rate 66 64 Respiratory Rate 36 H Blood Pressure 215/102 H Pulse Oximetry 95 99 Oxygen Delivery Method 03/27/22 14:00 03/27/22 14:00 03/27/22 14:30 Temperature Pulse Rate 63 Respiratory Rate 23 Blood Pressure 223/93 H 226/98 H Pulse Oximetry 98 Oxygen Delivery Method 03/27/22 14:30 03/27/22 15:00 03/27/22 15:00 Temperature Pulse Rate 59 L 64 Respiratory Rate 20 Blood Pressure 198/97 H Pulse Oximetry 94 93 Oxygen Delivery Method 03/27/22 15:30 03/27/22 15:30 03/27/22 16:00 Temperature Pulse Rate 59 L 62 Respiratory Rate 19 20 Blood Pressure 211/93 H Pulse Oximetry 96 95 Oxygen Delivery Method 03/27/22 16:16 03/27/22 16:16 03/27/22 16:30 Temperature Pulse Rate 63 Respiratory Rate 24 Blood Pressure 216/102 H 214/105 H Pulse Oximetry 98 Oxygen Delivery Method 03/27/22 16:30 03/27/22 17:00 03/27/22 17:00 Temperature Pulse Rate 62 56 L Respiratory Rate 20 Blood Pressure 234/100 H Pulse Oximetry 96 97 Oxygen Delivery Method 03/27/22 17:11 03/27/22 17:22 03/27/22 17:30 Temperature Pulse Rate 61 60 Respiratory Rate 19 Blood Pressure 220/98 H Pulse Oximetry 96 97 Oxygen Delivery Method 03/27/22 17:41 03/27/22 17:41 03/27/22 18:50 Temperature Pulse Rate 60 88 Respiratory Rate 19 Blood Pressure 232/105 H 214/98 H Pulse Oximetry 96 Oxygen Delivery Method <Alejandro Rider MD - Last Filed: 04/12/22 07:24> Orders Ordered: Discontinued Medications Atenolol (Atenolol 25 Mg Tablet) 25 mg PO NOW ONE Stop: 03/27/22 16:34 Last Admin: 03/27/22 16:48 Dose: 25 mg Documented By: EMMIE Sodium Chloride (Normal Saline 0.9%) 1,000 mls @ 1,000 mls/hr IV BOLUS ONE Stop: 03/27/22 16:04 Last Infusion: 03/27/22 16:43 Dose: 0 mls/hr Documented By: Admin: 03/27/22 15:09 Dose: 1,000 mls/hr Documented By: NAE Sodium Chloride (Normal Saline 0.9%) 1,000 mls @ 1,000 mls/hr IV BOLUS ONE Stop: 03/27/22 18:23 Last Infusion: 03/27/22 18:45 Dose: 0 mls/hr Documented By: Admin: 03/27/22 17:36 Dose: 1,000 mls/hr Documented By: TRUNG Lisinopril (Lisinopril 10 Mg Tablet) 10 mg PO NOW ONE Stop: 03/27/22 18:39 Last Admin: 03/27/22 18:50 Dose: 10 mg Documented By: NAE Morphine Sulfate (Morphine 4 Mg/Ml Inj) 4 mg IV NOW ONE Stop: 03/27/22 13:37 Last Admin: 03/27/22 13:54 Dose: 4 mg Documented By: NAE Ondansetron HCl (Ondansetron 4 Mg/2 Ml Inj) 4 mg IV NOW ONE Stop: 03/27/22 13:37 Last Admin: 03/27/22 13:54 Dose: 4 mg Documented By: NAE Ondansetron HCl (Ondansetron 4 Mg/2 Ml Inj) 4 mg IV NOW ONE Stop: 03/27/22 15:06 Last Admin: 03/27/22 15:15 Dose: 4 mg Documented By: NAE Pantoprazole Sodium (Pantoprazole 40 Mg Vial) 80 mg IV NOW ONE Stop: 03/27/22 12:21 Last Admin: 03/27/22 12:36 Dose: 80 mg Documented By: EMMIE Vital Signs Vital signs: Vital Signs - 8 hr 03/27/22 12:17 03/27/22 12:09 03/27/22 12:30 Temperature 98.3 F Pulse Rate 76 76 65 Respiratory Rate 20 18 Blood Pressure 230/110 H Pulse Oximetry 99 97 98 Oxygen Delivery Method Room Air 03/27/22 12:31 03/27/22 12:31 03/27/22 12:48 Temperature Pulse Rate 64 Respiratory Rate 23 Blood Pressure 219/100 H 212/105 H Pulse Oximetry 98 Oxygen Delivery Method 03/27/22 12:48 03/27/22 13:00 03/27/22 13:00 Temperature Pulse Rate 64 60 Respiratory Rate 20 16 Blood Pressure 215/105 H Pulse Oximetry 99 99 Oxygen Delivery Method 03/27/22 13:30 03/27/22 13:31 03/27/22 13:31 Temperature Pulse Rate 66 64 Respiratory Rate 36 H Blood Pressure 215/102 H Pulse Oximetry 95 99 Oxygen Delivery Method 03/27/22 14:00 03/27/22 14:00 03/27/22 14:30 Temperature Pulse Rate 63 Respiratory Rate 23 Blood Pressure 223/93 H 226/98 H Pulse Oximetry 98 Oxygen Delivery Method 03/27/22 14:30 03/27/22 15:00 03/27/22 15:00 Temperature Pulse Rate 59 L 64 Respiratory Rate 20 Blood Pressure 198/97 H Pulse Oximetry 94 93 Oxygen Delivery Method 03/27/22 15:30 03/27/22 15:30 03/27/22 16:00 Temperature Pulse Rate 59 L 62 Respiratory Rate 19 20 Blood Pressure 211/93 H Pulse Oximetry 96 95 Oxygen Delivery Method 03/27/22 16:16 03/27/22 16:16 03/27/22 16:30 Temperature Pulse Rate 63 Respiratory Rate 24 Blood Pressure 216/102 H 214/105 H Pulse Oximetry 98 Oxygen Delivery Method 03/27/22 16:30 03/27/22 17:00 03/27/22 17:00 Temperature Pulse Rate 62 56 L Respiratory Rate 20 Blood Pressure 234/100 H Pulse Oximetry 96 97 Oxygen Delivery Method 03/27/22 17:11 03/27/22 17:22 03/27/22 17:30 Temperature Pulse Rate 61 60 Respiratory Rate 19 Blood Pressure 220/98 H Pulse Oximetry 96 97 Oxygen Delivery Method 03/27/22 17:41 03/27/22 17:41 03/27/22 18:50 Temperature Pulse Rate 60 88 Respiratory Rate 19 Blood Pressure 232/105 H 214/98 H Pulse Oximetry 96 Oxygen Delivery Method MDM - GI Bleed <Chandler Mendoza PA-C - Last Filed: 03/27/22 19:47> Lab Data 03/27/22 18:05 03/27/22 18:05 Labs: Lab Results 03/27/22 03/27/22 03/27/22 Range/Units 12:16 12:27 12:27 WBC 10.0 (4.5-11.0) X10^3/uL RBC 4.39 (4.0-5.2) X10^6/uL Hgb 14.5 (12.0-16.0) g/dL Hct 42.6 (36-46) % MCV 97.1 (80-100) fL MCH 33.0 (26-34) PG MCHC 34.0 (30-36) % RDW 20.0 H (11.6-14.8) % Plt Count 284 (150-400) X10^3/uL Neut % (Auto) 88.4 H (50-75) % Lymph % (Auto) 4.8 L (25-40) % [place] % (Auto) 6.5 (3-14) % Eos % (Auto) 0.0 L (2-4) % Baso % (Auto) 0.3 (0-2) % Neut # (Auto) 8900 H (1477-9550) /uL Lymph # (Auto) 500 L (4799-8227) /uL [place] # (Auto) 700 (0-900) /uL Eos # (Auto) 0 (0-450) /uL Baso # (Auto) 0 (0-100) /uL RBC Morphology Anisocytosis PT 10.8 (10.1-12.7) SECONDS INR 0.9 (0.9-1.3) APTT 30 (26-36) SECONDS Sodium (137-145) mmol/L Potassium (3.4-5.1) mmol/L Chloride (98-107) mmol/L Carbon Dioxide (22-32) mmol/L BUN (7-17) mg/dL Creatinine (0.52-1.04) mg/dL Estimated GFR (>60) mL/min BUN/Creatinine Ratio (6-22) Glucose (80-110) mg/dL Calcium (8.4-10.2) mg/dL Total Bilirubin (0.2-1.3) mg/dL AST (14-36) IU/L ALT (<35) IU/L Alkaline Phosphatase (38-126) U/L Total Protein (6.3-8.2) g/dL Albumin (3.5-5.0) g/dL Globulin (1.7-4.1) g/dL Albumin/Globulin Ratio (1.0-2.8) Urine RBC (0-5/HPF) Urine WBC (0-5/HPF) Ur Squamous Epith Cells (0-5/HPF) Amorphous Sediment Urine Bacteria (None) Ur Culture Indicated? Micro UA Comment Blood Type A Positive Antibody Screen Negative 03/27/22 03/27/22 03/27/22 Range/Units 12:27 12:46 18:05 WBC 8.7 (4.5-11.0) X10^3/uL RBC 3.85 L (4.0-5.2) X10^6/uL Hgb 12.7 (12.0-16.0) g/dL Hct 37.6 (36-46) % MCV 97.8 (80-100) fL MCH 32.9 (26-34) PG MCHC 33.7 (30-36) % RDW 20.5 H (11.6-14.8) % Plt Count 239 (150-400) X10^3/uL Neut % (Auto) 80.0 H (50-75) % Lymph % (Auto) 10.5 L (25-40) % [place] % (Auto) 9.1 (3-14) % Eos % (Auto) 0.1 L (2-4) % Baso % (Auto) 0.3 (0-2) % Neut # (Auto) 7000 (2420-2388) /uL Lymph # (Auto) 900 L (2366-5223) /uL [place] # (Auto) 800 (0-900) /uL Eos # (Auto) 0 (0-450) /uL Baso # (Auto) 0 (0-100) /uL RBC Morphology See below Anisocytosis 2+ H PT (10.1-12.7) SECONDS INR (0.9-1.3) APTT (26-36) SECONDS Sodium 131 L (137-145) mmol/L Potassium 4.8 (3.4-5.1) mmol/L Chloride 90 L (98-107) mmol/L Carbon Dioxide 29 (22-32) mmol/L BUN 27 H (7-17) mg/dL Creatinine 0.68 (0.52-1.04) mg/dL Estimated GFR > 60 (>60) mL/min BUN/Creatinine Ratio 39.7 H (6-22) Glucose 135 H (80-110) mg/dL Calcium 10.5 H (8.4-10.2) mg/dL Total Bilirubin 0.9 (0.2-1.3) mg/dL AST 68 H (14-36) IU/L ALT 33 (<35) IU/L Alkaline Phosphatase 100 (38-126) U/L Total Protein 8.1 (6.3-8.2) g/dL Albumin 4.5 (3.5-5.0) g/dL Globulin 3.6 (1.7-4.1) g/dL Albumin/Globulin Ratio 1.3 (1.0-2.8) Urine RBC 5-10/hpf H (0-5/HPF) Urine WBC 1-5/hpf (0-5/HPF) Ur Squamous Epith Cells 1-5 /hpf (0-5/HPF) Amorphous Sediment 1+ Urine Bacteria None seen (None) Ur Culture Indicated? Specimen cultured Micro UA Comment Blood Type Antibody Screen 03/27/22 Range/Units 18:05 WBC (4.5-11.0) X10^3/uL RBC (4.0-5.2) X10^6/uL Hgb (12.0-16.0) g/dL Hct (36-46) % MCV (80-100) fL MCH (26-34) PG MCHC (30-36) % RDW (11.6-14.8) % Plt Count (150-400) X10^3/uL Neut % (Auto) (50-75) % Lymph % (Auto) (25-40) % [place] % (Auto) (3-14) % Eos % (Auto) (2-4) % Baso % (Auto) (0-2) % Neut # (Auto) (9462-0252) /uL Lymph # (Auto) (7859-2223) /uL [place] # (Auto) (0-900) /uL Eos # (Auto) (0-450) /uL Baso # (Auto) (0-100) /uL RBC Morphology Anisocytosis PT (10.1-12.7) SECONDS INR (0.9-1.3) APTT (26-36) SECONDS Sodium 131 L (137-145) mmol/L Potassium 4.9 (3.4-5.1) mmol/L Chloride 96 L (98-107) mmol/L Carbon Dioxide 27 (22-32) mmol/L BUN 21 H (7-17) mg/dL Creatinine 0.65 (0.52-1.04) mg/dL Estimated GFR > 60 (>60) mL/min BUN/Creatinine Ratio 32.3 H (6-22) Glucose 91 (80-110) mg/dL Calcium 8.7 (8.4-10.2) mg/dL Total Bilirubin 0.9 (0.2-1.3) mg/dL AST 46 H (14-36) IU/L ALT 25 (<35) IU/L Alkaline Phosphatase 73 (38-126) U/L Total Protein 6.3 (6.3-8.2) g/dL Albumin 3.5 (3.5-5.0) g/dL Globulin 2.8 (1.7-4.1) g/dL Albumin/Globulin Ratio 1.3 (1.0-2.8) Urine RBC (0-5/HPF) Urine WBC (0-5/HPF) Ur Squamous Epith Cells (0-5/HPF) Amorphous Sediment Urine Bacteria (None) Ur Culture Indicated? Micro UA Comment Blood Type Antibody Screen Point of Care Testing Stool Occult Blood Positive Urine Dip Bedside Urine Glucose Negative Bedside Urine Bilirubin - Negative Bedside Urine Ketone +/- 5 Urine Specific [place] 1.020 Bedside Urine Occult Blood +++ Bedside Urine pH 7.0 Bedside Urine Protein + 30 Bedside Urine Urobilinogen - Negative Bedside Urine Nitrite - Negative Bedside Urine Leukocytes ++ 125 Esterase MDM Narrative Medical decision making narrative: 66-year-old female past medical history hypertension, depression, hypothyroidism, GERD, anxiety presents to the ED with 2 days of abdominal cramping, 1 day of bloody stools. Concern for upper GI bleed versus peptic ulcer disease versus gastritis versus diverticulitis versus gastroenteritis versus C diff versus UTI versus other. Workup was obtained. EKG with normal sinus rhythm, no axis deviation, no acute ST-T changes. CT abdomen pelvis shows colitis of the distal colon due to infectious or inflammatory conditions. Labs within normal limits. Urinalysis without UTI. Patient was given Zofran, morphine, IV fluids for symptoms, with good improvement. Patient was also given her daily home dose of atenolol with modest lowering of blood pressure to [id number]. Patient was further given 10 mg of lisinopril to further lower the blood pressure to 214/98. Patient appears stable in the ED. CBC and Chem were repeated and H&H remained stable. Hematocrit fell from 14-12, attributed to dilutional causes from the 2 L of IV fluids. Patient had 3 bowel movements while in the ED, mentioned that her bowel movements for tapering off. Patient was discharged home with ED return precautions. Patient verbalized understanding. <Alejandro Rider MD - Last Filed: 04/12/22 07:24> Lab Data Labs: Lab Results 03/27/22 03/27/22 03/27/22 Range/Units 12:16 12:27 12:27 WBC 10.0 (4.5-11.0) X10^3/uL RBC 4.39 (4.0-5.2) X10^6/uL Hgb 14.5 (12.0-16.0) g/dL Hct 42.6 (36-46) % MCV 97.1 (80-100) fL MCH 33.0 (26-34) PG MCHC 34.0 (30-36) % RDW 20.0 H (11.6-14.8) % Plt Count 284 (150-400) X10^3/uL Neut % (Auto) 88.4 H (50-75) % Lymph % (Auto) 4.8 L (25-40) % [place] % (Auto) 6.5 (3-14) % Eos % (Auto) 0.0 L (2-4) % Baso % (Auto) 0.3 (0-2) % Neut # (Auto) 8900 H (7152-4925) /uL Lymph # (Auto) 500 L (3992-4957) /uL [place] # (Auto) 700 (0-900) /uL Eos # (Auto) 0 (0-450) /uL Baso # (Auto) 0 (0-100) /uL RBC Morphology Anisocytosis PT 10.8 (10.1-12.7) SECONDS INR 0.9 (0.9-1.3) APTT 30 (26-36) SECONDS Sodium (137-145) mmol/L Potassium (3.4-5.1) mmol/L Chloride (98-107) mmol/L Carbon Dioxide (22-32) mmol/L BUN (7-17) mg/dL Creatinine (0.52-1.04) mg/dL Estimated GFR (>60) mL/min BUN/Creatinine Ratio (6-22) Glucose (80-110) mg/dL Calcium (8.4-10.2) mg/dL Total Bilirubin (0.2-1.3) mg/dL AST (14-36) IU/L ALT (<35) IU/L Alkaline Phosphatase (38-126) U/L Total Protein (6.3-8.2) g/dL Albumin (3.5-5.0) g/dL Globulin (1.7-4.1) g/dL Albumin/Globulin Ratio (1.0-2.8) Urine RBC (0-5/HPF) Urine WBC (0-5/HPF) Ur Squamous Epith Cells (0-5/HPF) Amorphous Sediment Urine Bacteria (None) Ur Culture Indicated? Micro UA Comment Blood Type A Positive Antibody Screen Negative 03/27/22 03/27/22 03/27/22 Range/Units 12:27 12:46 18:05 WBC 8.7 (4.5-11.0) X10^3/uL RBC 3.85 L (4.0-5.2) X10^6/uL Hgb 12.7 (12.0-16.0) g/dL Hct 37.6 (36-46) % MCV 97.8 (80-100) fL MCH 32.9 (26-34) PG MCHC 33.7 (30-36) % RDW 20.5 H (11.6-14.8) % Plt Count 239 (150-400) X10^3/uL Neut % (Auto) 80.0 H (50-75) % Lymph % (Auto) 10.5 L (25-40) % [place] % (Auto) 9.1 (3-14) % Eos % (Auto) 0.1 L (2-4) % Baso % (Auto) 0.3 (0-2) % Neut # (Auto) 7000 (8395-5019) /uL Lymph # (Auto) 900 L (2317-4158) /uL [place] # (Auto) 800 (0-900) /uL Eos # (Auto) 0 (0-450) /uL Baso # (Auto) 0 (0-100) /uL RBC Morphology See below Anisocytosis 2+ H PT (10.1-12.7) SECONDS INR (0.9-1.3) APTT (26-36) SECONDS Sodium 131 L (137-145) mmol/L Potassium 4.8 (3.4-5.1) mmol/L Chloride 90 L (98-107) mmol/L Carbon Dioxide 29 (22-32) mmol/L BUN 27 H (7-17) mg/dL Creatinine 0.68 (0.52-1.04) mg/dL Estimated GFR > 60 (>60) mL/min BUN/Creatinine Ratio 39.7 H (6-22) Glucose 135 H (80-110) mg/dL Calcium 10.5 H (8.4-10.2) mg/dL Total Bilirubin 0.9 (0.2-1.3) mg/dL AST 68 H (14-36) IU/L ALT 33 (<35) IU/L Alkaline Phosphatase 100 (38-126) U/L Total Protein 8.1 (6.3-8.2) g/dL Albumin 4.5 (3.5-5.0) g/dL Globulin 3.6 (1.7-4.1) g/dL Albumin/Globulin Ratio 1.3 (1.0-2.8) Urine RBC 5-10/hpf H (0-5/HPF) Urine WBC 1-5/hpf (0-5/HPF) Ur Squamous Epith Cells 1-5 /hpf (0-5/HPF) Amorphous Sediment 1+ Urine Bacteria None seen (None) Ur Culture Indicated? Specimen cultured Micro UA Comment Blood Type Antibody Screen 03/27/22 Range/Units 18:05 WBC (4.5-11.0) X10^3/uL RBC (4.0-5.2) X10^6/uL Hgb (12.0-16.0) g/dL Hct (36-46) % MCV (80-100) fL MCH (26-34) PG MCHC (30-36) % RDW (11.6-14.8) % Plt Count (150-400) X10^3/uL Neut % (Auto) (50-75) % Lymph % (Auto) (25-40) % [place] % (Auto) (3-14) % Eos % (Auto) (2-4) % Baso % (Auto) (0-2) % Neut # (Auto) (1970-3730) /uL Lymph # (Auto) (5222-3765) /uL [place] # (Auto) (0-900) /uL Eos # (Auto) (0-450) /uL Baso # (Auto) (0-100) /uL RBC Morphology Anisocytosis PT (10.1-12.7) SECONDS INR (0.9-1.3) APTT (26-36) SECONDS Sodium 131 L (137-145) mmol/L Potassium 4.9 (3.4-5.1) mmol/L Chloride 96 L (98-107) mmol/L Carbon Dioxide 27 (22-32) mmol/L BUN 21 H (7-17) mg/dL Creatinine 0.65 (0.52-1.04) mg/dL Estimated GFR > 60 (>60) mL/min BUN/Creatinine Ratio 32.3 H (6-22) Glucose 91 (80-110) mg/dL Calcium 8.7 (8.4-10.2) mg/dL Total Bilirubin 0.9 (0.2-1.3) mg/dL AST 46 H (14-36) IU/L ALT 25 (<35) IU/L Alkaline Phosphatase 73 (38-126) U/L Total Protein 6.3 (6.3-8.2) g/dL Albumin 3.5 (3.5-5.0) g/dL Globulin 2.8 (1.7-4.1) g/dL Albumin/Globulin Ratio 1.3 (1.0-2.8) Urine RBC (0-5/HPF) Urine WBC (0-5/HPF) Ur Squamous Epith Cells (0-5/HPF) Amorphous Sediment Urine Bacteria (None) Ur Culture Indicated? Micro UA Comment Blood Type Antibody Screen Point of Care Testing Stool Occult Blood Positive Urine Dip Bedside Urine Glucose Negative Bedside Urine Bilirubin - Negative Bedside Urine Ketone +/- 5 Urine Specific Butler 1.020 Bedside Urine Occult Blood +++ Bedside Urine pH 7.0 Bedside Urine Protein + 30 Bedside Urine Urobilinogen - Negative Bedside Urine Nitrite - Negative Bedside Urine Leukocytes ++ 125 Esterase Discharge Plan Departure Patient Disposition: Home Clinical Impression: Bloody diarrhea Instructions: DI for Colitis Activity Restrictions/Additional Instructions: You were evaluated in the ED today for bloody stools, headache. Your labs, EKG, urine were normal. Your CT abdomen and pelvis shows a possible infectious or inflammatory condition of the colon that could be due to viral or bacterial causes. You were given IV fluids, morphine, Zofran for your symptoms. You were also given you daily dose of atenolol for high blood pressure, and also a dose of lisinopril. Please follow-up with your primary care doctor to monitor your blood pressure. Given that you are having extensive blood in the stool, we will treat with antibiotics. You were also being prescribed Levsin for abdominal cramping. Please continue to stay well hydrated. Return to the ED if you have worsening blood loss, lightheadedness, chest pain, shortness of breath. Prescriptions: No Action atenolol 100 mg tablet 100 mg PO DAILY levothyroxine 75 mcg tablet 75 mcg PO DAILY venlafaxine 50 mg tablet 50 mg PO TID Referrals: Traci Barney ARNP [Primary Care Provider] - Stand Alone Forms: Patient Portal/API <Alejandro Rider MD - Last Filed: 04/12/22 07:24> Cosign ED Attending Cosignature Attestation: I was immediately available in the department for consultation. ?This documentation has been reviewed and I agree with assessment and plan. Supervised by Alejandro Rider MD
== END 2022-03-27 19:54 | disposition home or self-care (01) ==
PROVIDERS: Emergency Medicine; Emergency Provider Student in an Organized Health Care Education/Training Program; PCP Internal Medicine
DX: R19.7 Diarrhea, unspecified (principal); R11.2 Nausea with vomiting, unspecified
CPT/HCPCS: 36415; 74177; 80053; 81003; 81015; 82272; 85025; 85610; 85730; 86850; 86900; 86901; 87077; 87086; 87186; 93005; 96361; 96374; 96375; 96376; 99284; C9113; J2270; J2405; Q9967

== ENCOUNTER 2022-05-10 12:45 | Day surgery (SDC) | payer MEDICARE, SELFPAY ==
--- NOTE | 2022-05-10 | PATH_ITS ---
[facility] Accession Number: [id number] No. of containers..02 Tissue . 01 Material submitted: . PART A: colon - CECAL POLYP X2 PART B: colon - TRANSVERSE COLON POLYP . 01 Diagnosis: A. Cecum Polyp x2, Biopsies: Tubular adenomas. . B. Transverse Colon, Polyp, Biopsy: Tubular adenoma. GREGOR 05/15/2022 0949 Local . 01 Electronically signed: . Giselle Miller MD, Pathologist NPI- [id number] . 01 Gross description: . Part A: CECAL POLYP X2: Received in formalin are multiple fragment(s) of tapia, soft tissue measuring 1.3 x 0.5 x 0.1 cm in aggregate submitted entirely in 1 cassette(s) Part B: TRANSVERSE COLON POLYP: Received in formalin is 1 fragment(s) of tapia, soft tissue measuring 0.4 x 0.2 x 0.1 cm submitted entirely in 1 cassette(s) /CPE 05/11/2022 0634 Local . 01 Pathologist provided ICD-10: D12.0, D12.3 . 01 CPT . 966528, [id number] Specimen Comment: A courtesy copy of this report has been sent to [phone] Performed at: 01 [facility] Cytology [address] [facility], [place], [place] [id number] MD Johnnie Noriega MD Phone: [phone]
[2022-05-10 13:00] VITALS: BP 174/110; PULSE 104; RESP 18; TEMP 36.1; O2SAT 99; BMI 22.8
[2022-05-10] MEDS: LACTATED RINGERS 1,000 ML 42 ML IV (13:10)
[2022-05-10 13:16] VITALS: BP 159/88; PULSE 84; RESP 18; O2SAT 99
--- NOTE | 2022-05-10 13:20 | PM.HP.1 ---
History of Present Illness History of Present Illness Date Patient Seen: 05/10/22 Time Patient Seen: 13:21 Chief complaint: Dx Colonoscopy Narrative: Norma is here for her colonoscopy. Please see the office note from April for details. No further bleeding from the rectum since then. Patient History Medical History (Updated 05/10/22 @ 13:21 by Jerry Lucia MD) Anxiety Bronchiectasis (~1993) Depression GERD (gastroesophageal reflux disease) Hypothyroidism Surgical History Anesthesia History of bilateral salpingo-oophorectomy (BSO) (~06/2012) Family & Social History Family History Father Age: 93 Stroke CAD (coronary artery disease) Mother Age: 90 Hypertension Grandfather No problems noted. Grandmother Cancer Grandfather No problems noted. Social History: household members spouse Tobacco & Substance use: Smoking Status Current every day smoker alcohol intake current alcohol intake frequency holiday/special occasion Substance Use Type does not use Meds Home Medications and Allergies Home Medications Medication Instructions Recorded Confirmed Type atenolol 100 mg tablet 100 mg PO DAILY 04/09/22 05/10/22 History levothyroxine 75 mcg tablet 75 mcg PO DAILY 04/09/22 05/10/22 History venlafaxine 50 mg tablet 50 mg PO TID 04/09/22 05/10/22 History liothyronine 5 mcg tablet 2.5 mcg PO DAILY 05/10/22 05/10/22 History lisinopril 40 mg tablet 40 mg PO POSTTR 05/10/22 05/10/22 History Allergies Allergy/AdvReac Type Severity Reaction Status Date / Time Sulfa (Sulfonamide AdvReac Mild ITCHING Verified 05/10/22 12:58 Antibiotics) [SULFA (SULFONAMIDE ANTIBIOTICS)] Exam Vital Signs (past 8 hours): - 05/10/22 13:00 05/10/22 13:16 Temperature 97.0 F L Pulse Rate 104 H 84 Respiratory Rate 18 18 Blood Pressure 174/110 H 159/88 H Pulse Oximetry 99 99 Oxygen Delivery Method Room Air Room Air Oxygen Delivery Method Room Air Const General: No acute distress Resp Effort & Inspection: normal respiratory effort Assessment & Plan Assessment and plan (1) Colon cancer screening: Status: Acute Plan Reviewed risks and benefits of colonoscopy for colon cancer screening and she would like to proceed Time Spent With Patient Critical Care time: I spent a total of [] minutes of critical care time on this patient's care today; this time is exclusive of procedural time.
--- NOTE | 2022-05-10 13:57 | PM.OP.COLON ---
Operative Date/Time/Diagnoses Date of procedure: 05/10/22 Time of procedure: 13:57 Pre-op diagnosis: Melena Post-op diagnosis: same Procedure & Clinicians Study performed: Colonoscopy Same procedure as scheduled: Yes Surgeon: Jerry Lucia Procedure Notes Procedure in detail: Surgeon: Jerry Lucia MD Anesthesia: Olivia Ng CRNA Procedure: The patient was brought to the endoscopy suite, placed in left lateral decubitus position. The patient was connected to monitoring devices. A time-out was performed. Sedation was administered. Once the patient was adequately sedated, a digital rectal exam was performed and was normal. The scope was then inserted and advanced to the cecum where the appendiceal orifice was identified and photographed. The scope was then slowly withdrawn over greater than 6 minutes. The mucosa was thoroughly inspected. There was a 8 mm flat polyp in the cecum removed with a cold snare. There was a 5 mm flat polyp in the cecum removed with a cold snare. These were sent together. There was a 5 mm polyp in the transverse colon removed with cold snare. The scope was retroflexed in the rectum. No other abnormalities were seen. The scope was straightened and removed. The patient was awakened and brought to recovery. Scope withdrawal time: 14 minutes Sedation time: 19 minutes EBL: 5 mL Findings: 8 mm flat polyp in the cecum, 5 mm flat polyp in the cecum and 5 mm flat polyp in the transverse colon Post-procedure Disposition: PACU
[2022-05-10 14:01] VITALS: BP 114/74; PULSE 91; RESP 20; TEMP 36.4; O2SAT 97
[2022-05-10 14:05] VITALS: BP 131/85; PULSE 73; RESP 16; O2SAT 99
[2022-05-10 14:10] VITALS: BP 119/85; PULSE 81; RESP 14; O2SAT 95
== END 2022-05-10 14:54 | disposition home or self-care (01) ==
PROVIDERS: PCP Internal Medicine; Referring Provider Surgery; Visit Provider Surgery
PROC: 0DJD8ZZ Inspection of Lower Intestinal Tract, Via Natural or Artificial Opening Endoscopic (ICD-10-PCS; CPT 45378; principal; 2022-05-10 13:45)
DX: K92.1 Melena (principal); D12.0 Benign neoplasm of cecum; D12.3 Benign neoplasm of transverse colon
CPT/HCPCS: 45385; J2704

== ENCOUNTER → 2023-07-17 08:02 | Outpatient (CLI) | payer MEDICARE, SELFPAY ==
--- NOTE | 2023-07-17 08:04 | DI.US.S_ITS ---
PROCEDURE: US THYROID INDICATIONS: HYPOTHYROIDISM TECHNIQUE: Real-time scanning was performed of the thyroid gland, with image documentation. COMPARISON: None. FINDINGS: Thyroid: Right lobe measures 1.3 x 0.5 x 0.6 cm. Left lobe measures 2.0 x 0.7 x 0.6 cm. Isthmus is 0.2 cm thick. Echotexture is homogeneous. Homogeneous echotexture without nodules. IMPRESSION: Hypoplastic but otherwise unremarkable Thyroid 1. Approved by: Konstantin Wisdom M.D. on 07/17/2023 at 10:59
--- NOTE | 2023-07-17 12:45 | DI.RAD.S_ITS ---
PROCEDURE: XR DEXA AXIAL SKELETON INDICATIONS: HYPOTHYROIDISM COMPARISON: [facility], , XR DEXA AXIAL SKELETON, 06/13/2021, 10:49. FINDINGS: Lumbar Spine: Bone mineral density 0.719 g/cm2, T score -3.0, osteoporosis. Left Hip: Bone mineral density 0.676 g/cm2, T score -2.2, osteopenia. Left Femoral Neck: Bone mineral density 0.642 g/cm2, T score -1.9, osteopenia. Right Hip: Bone mineral density 0.634 g/cm2, T score -2.5, osteoporosis. Right Femoral Neck: Bone mineral density 0.580 g/cm2, T score -2.4, osteopenia. Fracture Risk Calculation (when applicable): 10-year fracture risk of a major osteoporotic fracture 21% and of a hip fracture 7.0%. (T score greater or equal to -1.0 to: NORMAL) (T score from -1.1 to -2.4: OSTEOPENIA) (T score less than or equal to -2.5: OSTEOPOROSIS) IMPRESSION: 1. Based on WHO criteria, the patient has osteoporosis. Because of at dissimilar scan types and analysis methods, the statistical significance of bone mineral density differences between the current scan and prior scan cannot be assessed. Follow-up guidelines as follows: Osteoporosis: Consider a repeat DEXA and Vertebral Fracture Assessment (VFA) exam in 2 years or sooner if medically necessary, to reassess this patient's status. Osteopenia: Consider a repeat DEXA in 2-3 years to reassess this patient's status, or if there is a new clinical indication. Normal: Consider a repeat DEXA in 5 years or sooner, or if there is a new clinical indication. Dictated by: Marilyn Simpson M.D. on 07/17/2023 at 14:59 Approved by: Marilyn Simpson M.D. on 07/17/2023 at 15:02
== END ==
LOC: US 08:02
PROVIDERS: PCP Internal Medicine; Referring Provider Internal Medicine; Visit Provider Internal Medicine
DX: M81.0 Age-related osteoporosis without current pathological fracture (principal); E03.9 Hypothyroidism, unspecified; Z78.0 Asymptomatic menopausal state
CPT/HCPCS: 76536; 77080

== ENCOUNTER 2023-11-06 18:31 | Emergency (ER) | payer MEDICARE, SELFPAY ==
[2023-11-06] VITALS (7 sets, daily range): BP systolic 121–151; BP diastolic 63–74; PULSE 67–76; RESP 17–18; TEMP 36.6; O2SAT 94–97; BMI 22.8
--- NOTE | 2023-11-06 18:44 | DI.CT.S_ITS ---
PROCEDURE: CT CERVICAL SPINE WO CON INDICATIONS: head injury TECHNIQUE: Noncontrast 3 mm thick sections acquired from the skull base to the T4 level. Sagittal and coronal reformats were then constructed. For radiation dose reduction, the following was used: automated exposure control, adjustment of mA and/or kV according to patient size. COMPARISON: None. FINDINGS: Image quality: Excellent. Bones: No fractures or dislocations. Multilevel degenerative changes of the cervical spine, most pronounced at C4-C5. Straightening of the normal cervical lordosis. Visualized superior ribs are intact. Soft tissues: Prevertebral soft tissues are normal in thickness. No paravertebral hematomas. No apical pneumothoraces. IMPRESSION: No displaced fracture or traumatic subluxation. Dictated by: Armando Marin M.D. on 11/06/2023 at 19:14 Approved by: Armando Marin M.D. on 11/06/2023 at 19:17
--- NOTE | 2023-11-06 18:44 | DI.CT.S_ITS ---
PROCEDURE: CT HEAD/BRAIN WO CON INDICATIONS: head injury TECHNIQUE: Noncontrast 4.5 mm thick angled axial sections acquired from the foramen magnum to the vertex, with coronal and sagittal reformats. For radiation dose reduction, the following was used: automated exposure control, adjustment of mA and/or kV according to patient size. COMPARISON: [facility], CT, CT HEAD/BRAIN WO CON, 04/26/2019, 16:46. FINDINGS: Image quality: Diagnostic. CSF spaces: Basal cisterns are patent. No extra-axial fluid collections. The ventricles are symmetric in size and shape. Brain: No intracranial bleeds or masses. There is cerebral volume loss for age, with resultant ventricular and sulcal prominence. There are periventricular and deep white matter chronic small vessel ischemic changes. There is intracranial internal carotid artery atherosclerosis. Skull and face: Left occipital scalp hematoma and laceration. No underlying calvarial fracture. Calvarium and visualized facial bones appear intact, without suspicious lesions. Bilateral lens replacements. Sinuses: Visualized sinuses and mastoids are clear. IMPRESSION: No acute intracranial pathology. Left occipital scalp hematoma and laceration without underlying fracture. Dictated by: Armando Marin M.D. on 11/06/2023 at 19:12 Approved by: Armando Marin M.D. on 11/06/2023 at 19:14
--- NOTE | 2023-11-06 21:44 | ED.HEATRA ---
HPI - Head Injury General Chief complaint: Head Injury Stated complaint: fell hit head, on thinners Time Seen by Provider: 11/06/23 20:56 Source: patient Mode of arrival: Ambulatory History of Present Illness HPI Narrative: Slip and fal down one step with posterior head injury. No LOC. Denies use of blood thinners. Complaining of posterior head pain. Related Data Home Medications Medication Instructions Recorded Confirmed atenolol 100 mg tablet 100 mg PO DAILY 04/09/22 05/10/22 levothyroxine 75 mcg tablet 75 mcg PO DAILY 04/09/22 05/10/22 venlafaxine 50 mg tablet 50 mg PO TID 04/09/22 05/10/22 liothyronine 5 mcg tablet 2.5 mcg PO DAILY 05/10/22 05/10/22 lisinopril 40 mg tablet 40 mg PO POSTTR 05/10/22 05/10/22 Allergies Allergy/AdvReac Type Severity Reaction Status Date / Time Sulfa (Sulfonamide AdvReac Mild ITCHING Verified 11/06/23 18:43 Antibiotics) [SULFA (SULFONAMIDE ANTIBIOTICS)] Patient History Medical History GERD (gastroesophageal reflux disease) Bronchiectasis (~1993) Depression Anxiety Hypothyroidism Surgical History Anesthesia History of bilateral salpingo-oophorectomy (BSO) (~06/2012) Family History Father Age: 94 Stroke CAD (coronary artery disease) Mother Age: 91 Hypertension Grandfather No problems noted. Grandmother Cancer Grandfather No problems noted. Social History household members: spouse Smoking Status: Current every day smoker alcohol intake: current Smoking Status: Current every day smoker tobacco type: cigarettes alcohol intake frequency: holidays/special occasions only Alcohol type: wine and hard liquor Substance Use Type: does not use Exam Initial Vital Signs Initial Vital Signs: Vital Signs Temperature 98 F 11/06/23 18:40 Pulse Rate 76 11/06/23 18:40 Respiratory Rate 17 11/06/23 18:40 Blood Pressure 128/74 11/06/23 18:40 Pulse Oximetry 96 11/06/23 18:40 Oxygen Delivery Method Room Air 11/06/23 18:40 Const: Awake, alert, no acute distress, nontoxic appearing HEENT: Occipital contusion, PERRL, EOMI, no depressions MSK: Atraumatic, full range of motion, pulses equal Skin: Warm, Dry, intact, no rashes Neuro: AO x3, CN II-XII grossly intact, moves all extremities Course Orders Ordered: ED Orders 11/06/23 18:44 CT cervical spine wo con Stat CT head/brain wo con Stat Vital Signs Vital signs: Vital Signs - 8 hr 11/06/23 18:40 11/06/23 20:58 11/06/23 20:59 Temperature 98 F Pulse Rate 76 75 Respiratory Rate 17 Blood Pressure 128/74 149/72 H Pulse Oximetry 96 97 Oxygen Delivery Method Room Air 11/06/23 20:59 11/06/23 21:00 11/06/23 21:00 Temperature Pulse Rate 75 76 Respiratory Rate Blood Pressure 151/73 H Pulse Oximetry 96 96 Oxygen Delivery Method 11/06/23 21:30 11/06/23 21:30 11/06/23 21:56 Temperature Pulse Rate 67 Respiratory Rate Blood Pressure 141/68 H Pulse Oximetry 97 94 Oxygen Delivery Method 11/06/23 21:56 11/06/23 22:00 Temperature Pulse Rate Respiratory Rate 18 Blood Pressure 121/63 122/71 Pulse Oximetry Oxygen Delivery Method MDM - Head Injury Differential Diagnosis Differential diagnosis: Likely concussion without loss of consciousness, closed head injury and postconcussion syndrome Imaging Data CT - cervical spine: Radiologist's Impression: PROCEDURE: CT CERVICAL SPINE WO CON INDICATIONS: head injury TECHNIQUE: Noncontrast 3 mm thick sections acquired from the skull base to the T4 level. Sagittal and coronal reformats were then constructed. For radiation dose reduction, the following was used: automated exposure control, adjustment of mA and/or kV according to patient size. COMPARISON: None. FINDINGS: Image quality: Excellent. Bones: No fractures or dislocations. Multilevel degenerative changes of the cervical spine, most pronounced at C4-C5. Straightening of the normal cervical lordosis. Visualized superior ribs are intact. Soft tissues: Prevertebral soft tissues are normal in thickness. No paravertebral hematomas. No apical pneumothoraces. IMPRESSION: No displaced fracture or traumatic subluxation. Dictated by: Armando Marin M.D. on 11/06/2023 at 19:14 Approved by: Armando Marin M.D. on 11/06/2023 at 19:17 CT scan - head: Radiologist's Impression: PROCEDURE: CT HEAD/BRAIN WO CON INDICATIONS: head injury TECHNIQUE: Noncontrast 4.5 mm thick angled axial sections acquired from the foramen magnum to the vertex, with coronal and sagittal reformats. For radiation dose reduction, the following was used: automated exposure control, adjustment of mA and/or kV according to patient size. COMPARISON: [facility], CT, CT HEAD/BRAIN WO CON, 04/26/2019, 16:46. FINDINGS: Image quality: Diagnostic. CSF spaces: Basal cisterns are patent. No extra-axial fluid collections. The ventricles are symmetric in size and shape. Brain: No intracranial bleeds or masses. There is cerebral volume loss for age, with resultant ventricular and sulcal prominence. There are periventricular and deep white matter chronic small vessel ischemic changes. There is intracranial internal carotid artery atherosclerosis. Skull and face: Left occipital scalp hematoma and laceration. No underlying calvarial fracture. Calvarium and visualized facial bones appear intact, without suspicious lesions. Bilateral lens replacements. Sinuses: Visualized sinuses and mastoids are clear. IMPRESSION: No acute intracranial pathology. Left occipital scalp hematoma and laceration without underlying fracture. Dictated by: Armando Marin M.D. on 11/06/2023 at 19:12 Approved by: Armando Marin M.D. on 11/06/2023 at 19:14 [facility] Narrative Medical decision making narrative: ground level mechanical injury. Occipital contusion noted to posterior scalp without laceration. CT is negative for acute traumatic findings. Discharge Plan Departure Patient Disposition: Home Clinical Impression: Closed head injury, Hematoma of occipital region of scalp Instructions: DI for Contusion, DI for Closed Head Injury Activity Restrictions/Additional Instructions: Apply ice as needed to areas of swelling. You may take Tylenol as needed for pain. Your CT imaging today did not show any fractures or bleeds. Prescriptions: No Action atenolol 100 mg tablet 100 mg PO DAILY levothyroxine 75 mcg tablet 75 mcg PO DAILY venlafaxine 50 mg tablet 50 mg PO TID liothyronine 5 mcg tablet 2.5 mcg PO DAILY Patient Comments: take 1/2 tablet by mouth once daily lisinopril 40 mg tablet 40 mg PO POSTTR Patient Comments: take 1 tablet by mouth once daily Referrals: Traci Barney ARNP [Primary Care Provider] - Stand Alone Forms: Patient Portal/API
== END 2023-11-06 22:05 | disposition home or self-care (01) ==
PROVIDERS: Emergency Provider Emergency Medicine; PCP Internal Medicine
DX: S00.03XA Contusion of scalp, initial encounter (principal); S09.90XA Unspecified injury of head, initial encounter; W01.0XXA Fall on same level from slipping, tripping and stumbling without subsequent striking against object, initial encounter
CPT/HCPCS: 70450; 72125; 99281; 99284

== ENCOUNTER 2023-12-16 21:51 | Emergency (ER) | payer MEDICARE, SELFPAY ==
[2023-12-16 21:54] VITALS: BP 108/61; BP 97/53; PULSE 61; RESP 18; TEMP 36.4; O2SAT 96; O2SAT 98; BMI 23.2
[2023-12-16 22:00] VITALS: PULSE 58; O2SAT 98
--- NOTE | 2023-12-16 22:00 | DI.CT.S_ITS ---
PROCEDURE: CT CERVICAL SPINE WO CON INDICATIONS: fall etoh TECHNIQUE: Noncontrast 3 mm thick sections acquired from the skull base to the T4 level. Sagittal and coronal reformats were then constructed. For radiation dose reduction, the following was used: automated exposure control, adjustment of mA and/or kV according to patient size. COMPARISON: [facility], CT, CT CERVICAL SPINE WO CON, 11/06/2023, 18:48. FINDINGS: Image quality: Excellent. Bones: No fractures or dislocations. Visualized superior ribs are intact. Intervertebral disc height loss and endplate sclerosis at C4-C5. Mild multilevel facet arthropathy. Soft tissues: Prevertebral soft tissues are normal in thickness. No paravertebral hematomas. No apical pneumothoraces. Moderate right common carotid bulb calcifications., IMPRESSION: No displaced fracture or traumatic subluxation. Dictated by: Broderick Salazar M.D. on 12/16/2023 at 23:31 Approved by: Broderick Salazar M.D. on 12/16/2023 at 23:33
--- NOTE | 2023-12-16 22:00 | DI.CT.S_ITS ---
PROCEDURE: CT HEAD/BRAIN WO CON INDICATIONS: fall etoh TECHNIQUE: Noncontrast 4.5 mm thick angled axial sections acquired from the foramen magnum to the vertex, with coronal and sagittal reformats. For radiation dose reduction, the following was used: automated exposure control, adjustment of mA and/or kV according to patient size. COMPARISON: [facility], CT, CT HEAD/BRAIN WO CON, 11/06/2023, 18:48. [facility], CT, CT HEAD/BRAIN WO CON, 04/26/2019, 16:46. FINDINGS: Image quality: Limited evaluation due to motion artifact and suboptimal positioning in the scanner. CSF spaces: Basal cisterns are patent. No extra-axial fluid collections. The ventricles are symmetric in size and shape. Brain: No intracranial bleeds or masses. There is cerebral volume loss for age, with resultant ventricular and sulcal prominence. There are periventricular and deep white matter chronic small vessel ischemic changes. There is intracranial internal carotid artery atherosclerosis. Skull and face: Calvarium and visualized facial bones appear intact, without suspicious lesions. Sinuses: Visualized sinuses and mastoids are clear. IMPRESSION: No acute intracranial pathology. Dictated by: Broderick Salazar M.D. on 12/16/2023 at 23:34 Approved by: Broderick Salazar M.D. on 12/16/2023 at 23:37
[2023-12-16 22:30] VITALS: PULSE 55; O2SAT 100
--- NOTE | 2023-12-16 22:39 | PC.NURSE ---
Left eyebrow lac cleansed with NS
[2023-12-16 23:00] VITALS: PULSE 57; O2SAT 98
[2023-12-16 23:30] VITALS: PULSE 57; O2SAT 99
--- NOTE | 2023-12-16 23:53 | ED.FALL ---
HPI - Fall General Chief Complaint: Fall Stated Complaint: GLF Time Seen by Provider: 12/16/23 22:00 Source: patient and EMS Mode of arrival: EMS History of Present Illness HPI Narrative: Patient is a 68-year-old female history of alcohol abuse hypertension depression frequent falls presenting today with fall. He says that she has a history of colitis she was needing to go to the bathroom. She got up to the restroom when she fell hitting the ground. heard her fall immediately came in she lost consciousness for about 1 minute or less. No nausea vomiting numbness tingling or weakness. She does have a small laceration above her left eyebrow. Denies any neck pain shoulder pain hip pain or other. Has been says that she falls frequently she is on medication that makes her dizzy and lightheaded knows that alcohol does not help the situation. Related Data Home Medications Medication Instructions Recorded Confirmed atenolol 100 mg tablet 100 mg PO DAILY 04/09/22 05/10/22 levothyroxine 75 mcg tablet 75 mcg PO DAILY 04/09/22 05/10/22 venlafaxine 50 mg tablet 50 mg PO TID 04/09/22 05/10/22 liothyronine 5 mcg tablet 2.5 mcg PO DAILY 05/10/22 05/10/22 lisinopril 40 mg tablet 40 mg PO POSTTR 05/10/22 05/10/22 Allergies Allergy/AdvReac Type Severity Reaction Status Date / Time Sulfa (Sulfonamide AdvReac Mild ITCHING Verified 11/06/23 18:43 Antibiotics) [SULFA (SULFONAMIDE ANTIBIOTICS)] Patient History Medical History (Updated 12/17/23 @ 00:22 by Steph Moffett DO) GERD (gastroesophageal reflux disease) Bronchiectasis (~1993) Depression Anxiety Hypothyroidism Surgical History Anesthesia History of bilateral salpingo-oophorectomy (BSO) (~06/2012) Family History Father Age: 94 Stroke CAD (coronary artery disease) Mother Age: 91 Hypertension Grandfather No problems noted. Grandmother Cancer Grandfather No problems noted. Social History household members: spouse Smoking Status: Current every day smoker alcohol intake: current Smoking Status: Current every day smoker tobacco type: cigarettes alcohol intake frequency: 3 or more drinks per day Alcohol type: wine Substance Use Type: does not use Exam Initial Vital Signs Initial Vital Signs: Vital Signs Temperature 97.6 F 12/16/23 21:54 Pulse Rate 61 12/16/23 21:54 Respiratory Rate 18 12/16/23 21:54 Blood Pressure 97/53 L 12/16/23 21:54 Pulse Oximetry 98 12/16/23 21:54 Oxygen Delivery Method Room Air 12/16/23 21:54 GENERAL: Alert 68-year-old female HEENT: Head atraumatic, 1.5 cm laceration left eyebrow EOMI, pupils reactive, face symmetric slightly dry mucous membranes NECK: No vertebral tenderness no step-off CARDIOVASCULAR: Regular rate and rhythm without murmurs, rubs or gallops. RESPIRATORY: Breath sounds equal bilaterally, no wheezes rales or rhonchi. ABDOMEN: Soft, nontender. Normoactive bowel sounds all 4 quadrants. No guarding or rebound. EXTREMITIES: Normal range of motion, no clubbing or edema. Neurovascularly intact NEUROLOGICAL: Alert and oriented x4.Normal gait and speech. Cranial nerves II through XII grossly intact. Moving all extremities SKIN: 1.5 cm laceration left eyebrow good skin approximation Procedures Laceration Repair Laceration 1: Site: face (eyebrow) Side (If applicable): left Size (cm): 1.5 Description: linear Depth: simple, single layer Local Anesthetic: lidocaine 1% and with epi Skin layer closed with: dermabond (and steristrips) Scores GCS [place] coma scale eye opening: Spontaneous [place] coma scale verbal response: Orientated [place] coma scale motor response: Obey commands [place] coma scale total score: 15 Course Orders Ordered: ED Orders 12/16/23 22:00 CT cervical spine wo con Stat CT head/brain wo con Stat Vital Signs Vital signs: Vital Signs - 8 hr 12/16/23 21:54 12/16/23 21:54 12/16/23 21:54 Temperature 97.6 F Pulse Rate 61 61 Respiratory Rate 18 Blood Pressure 97/53 L 108/61 Pulse Oximetry 98 96 Oxygen Delivery Method Room Air Room Air 12/16/23 22:00 12/16/23 22:30 12/16/23 23:00 Temperature Pulse Rate 58 L 55 L 57 L Respiratory Rate Blood Pressure Pulse Oximetry 98 100 98 Oxygen Delivery Method 12/16/23 23:30 12/17/23 00:00 12/17/23 00:00 Temperature Pulse Rate 57 L 58 L Respiratory Rate Blood Pressure 109/62 Pulse Oximetry 99 99 Oxygen Delivery Method MDM - Fall Imaging Data CT - cervical spine: Radiologist's Impression: PROCEDURE: CT CERVICAL SPINE WO CON INDICATIONS: fall etoh TECHNIQUE: Noncontrast 3 mm thick sections acquired from the skull base to the T4 level. Sagittal and coronal reformats were then constructed. For radiation dose reduction, the following was used: automated exposure control, adjustment of mA and/or kV according to patient size. COMPARISON: [facility], CT, CT CERVICAL SPINE WO CON, 11/06/2023, 18:48. FINDINGS: Image quality: Excellent. Bones: No fractures or dislocations. Visualized superior ribs are intact. Intervertebral disc height loss and endplate sclerosis at C4-C5. Mild multilevel facet arthropathy. Soft tissues: Prevertebral soft tissues are normal in thickness. No paravertebral hematomas. No apical pneumothoraces. Moderate right common carotid bulb calcifications., IMPRESSION: No displaced fracture or traumatic subluxation. Dictated by: Broderick Salazar M.D. on 12/16/2023 at 23:31 CT scan - head: Radiologist's Impression: PROCEDURE: CT HEAD/BRAIN WO CON INDICATIONS: fall etoh TECHNIQUE: Noncontrast 4.5 mm thick angled axial sections acquired from the foramen magnum to the vertex, with coronal and sagittal reformats. For radiation dose reduction, the following was used: automated exposure control, adjustment of mA and/or kV according to patient size. COMPARISON: [facility], CT, CT HEAD/BRAIN WO CON, 11/06/2023, 18:48. [facility], CT, CT HEAD/BRAIN WO CON, 04/26/2019, 16:46. FINDINGS: Image quality: Limited evaluation due to motion artifact and suboptimal positioning in the scanner. CSF spaces: Basal cisterns are patent. No extra-axial fluid collections. The ventricles are symmetric in size and shape. Brain: No intracranial bleeds or masses. There is cerebral volume loss for age, with resultant ventricular and sulcal prominence. There are periventricular and deep white matter chronic small vessel ischemic changes. There is intracranial internal carotid artery atherosclerosis. Skull and face: Calvarium and visualized facial bones appear intact, without suspicious lesions. Sinuses: Visualized sinuses and mastoids are clear. IMPRESSION: No acute intracranial pathology. Dictated by: Broderick Salazar M.D. on 12/16/2023 at 23:34 MDM Narrative Medical decision making narrative: Patient 60-year-old female with known alcohol abuse presenting today after fall in bathroom. Has been reports that she feels frequently due to medication and alcohol combination. She has been here previously for falls. She is small laceration over left eyebrow which is repaired with Steri-Strips and Dermabond. She still had some oozing so lidocaine with epi was also done. Imaging has been reviewed and negative. She is appropriate in the ED no focal deficits Discharge Plan Departure Patient Disposition: Home Clinical Impression: Fall, Laceration of eyebrow, left Instructions: DI for Laceration Repair-Skin Closure Strips, DI for Laceration Repair-Skin Glue Activity Restrictions/Additional Instructions: *You have been diagnosed with fall left eyebrow laceration *What to do: Keep Steri-Strips on until they fall off. Sometimes it is 3-7 days. Watch for redness swelling and infection. Once Steri-Strips have fallen off you may put antibiotic ointment on there *Continue to take medications as directed *Follow up with your primary care provider in 2-3 days or call [phone] *Return to ER if you should have increased confusion redness swelling drainage or any new, worsening or concerning symptoms Prescriptions: No Action atenolol 100 mg tablet 100 mg PO DAILY levothyroxine 75 mcg tablet 75 mcg PO DAILY venlafaxine 50 mg tablet 50 mg PO TID liothyronine 5 mcg tablet 2.5 mcg PO DAILY Patient Comments: take 1/2 tablet by mouth once daily lisinopril 40 mg tablet 40 mg PO POSTTR Patient Comments: take 1 tablet by mouth once daily Referrals: Traci Barney ARNP [Primary Care Provider] - Stand Alone Forms: Patient Portal/API
--- NOTE | 2023-12-16 23:54 | PC.NURSE ---
Ok per Dr. Moffett to remove c-collar. Pt exhibits full ROM from shoulder to shoulder, chin to neck, and up to ceiling. States It just feels stiff but no pain.
[2023-12-17] VITALS: BP 109/62; PULSE 58; O2SAT 99
--- NOTE | 2023-12-17 00:21 | PC.NURSE ---
Pressure dressing and bandage applied
--- NOTE | 2023-12-17 00:29 | PC.NURSE ---
Pt ambulatory around department without difficulty or assistance.
== END 2023-12-17 00:49 | disposition home or self-care (01) ==
PROVIDERS: Emergency Provider Emergency Medicine; PCP Internal Medicine
DX: S01.112A Laceration without foreign body of left eyelid and periocular area, initial encounter (principal); W18.30XA Fall on same level, unspecified, initial encounter; Z91.81 History of falling
CPT/HCPCS: 12011; 70450; 72125; 99281; 99284

== ENCOUNTER → 2024-06-14 09:55 | Outpatient (CLI) | payer OTHER, SELFPAY ==
--- NOTE | 2024-06-14 | DI.CT.S_ITS ---
PROCEDURE: CT CHEST WO CON INDICATIONS: lung nodule TECHNIQUE: Noncontrast 2.0-2.5 mm thick sections acquired from the pulmonary apices to the posterior costophrenic angles. 7 mm thick axial MIP and 5 mm coronal and sagittal reformats were then acquired. For radiation dose reduction, the following was used: automated exposure control, adjustment of mA and/or kV according to patient size. COMPARISON: [facility], CT, CT CHEST WO [facility], 06/15/2021, 11:12. FINDINGS: Image quality: Diagnostic. Lower Neck: No enlarged lymph nodes. Thyroid: No thyroid nodules which require sonographic follow up, per consensus guidelines. Axillae: No enlarged lymph nodes. Chest Wall: Unremarkable. Bones: Unremarkable. Lungs and Pleura: No pneumothorax or pleural effusions. No consolidations. Previously described 5 mm pleural base nodule in posterior lateral left lower lobe now measures 3 mm in size series 2 image 210. Previously described 2 mm subpleural nodule in right upper lobe remains stable series 3, image 132. No new pulmonary nodule is seen. Heart: Heart size is normal. No pericardial effusion. 2 vessel coronary artery atherosclerotic calcifications are seen. Thoracic Vessels: The aorta and pulmonary arteries demonstrate normal size. Mediastinum and Gabriella: No enlarged lymph nodes. Esophagus: No wall thickening. Large hiatal hernia. Upper Abdomen: Visualized upper abdomen solid organs and bowel loops appear normal. IMPRESSION: 1. Smaller left lower lobe nodule and stable right upper lobe nodule as above. No new pulmonary nodule is seen. Finding is consistent with benign process. Lung rads category 2. Annual low-dose CT chest follow-up is recommended as long as patient meets the criteria. 2. Moderate 2 vessel coronary artery atherosclerotic calcifications. Large hiatal hernia. Fleischner Society criteria for SOLID lung nodule followup. Nodule size (mm)Low-risk patientHigh-risk patient<6 (single or multiple)No routine followup.Optional CT at 12 months. 6-8 (single or multiple)CT at 6-12 months, then optional CT at 18-24 mo.CT at 6-12 months, then CT at 18-24 months. >8 (single)CT at 3 months, PET-CT, or biopsy. Same as for low-risk pts. >8 (multiple)CT at 3-6 months, then optional CT at 18-24 mo.CT at 3-6 months, then CT at 18-24 months. Fleischner Society criteria for SUB-SOLID lung nodule followup. Solitary pure ground-glass nodules<6 mm (ground glass or part solid)No followup needed. 6 mm or larger (ground glass)CT at 6-12 months to confirm persistence, then CT every 2 years until 5 years.6 mm or larger (part solid)CT at 3-6 months to confirm persistence, then annual CT until 5 years if unchanged and solid component remains <6 mm. Multiple sub-solid nodules<6 mmCT at 3-6 months, then CT consider at 2 & 4 years for high risk patients. [address] at 3-6 months. Subsequent management based on most suspicious lesions. Recommendations do not apply to lung cancer screening, patients with immunosuppression, or patients with known primary cancer. Dictated by: Triston Cope M.D. on 06/14/2024 at 21:47 Approved by: Triston Cope M.D. on 06/14/2024 at 21:53
== END ==
LOC: CT 09:55
PROVIDERS: PCP Internal Medicine; Referring Provider Family Medicine; Visit Provider Family Medicine
DX: R91.8 Other nonspecific abnormal finding of lung field (principal); I25.10 Atherosclerotic heart disease of native coronary artery without angina pectoris; K44.9 Diaphragmatic hernia without obstruction or gangrene
CPT/HCPCS: 71250